=== PATIENT | female | born 1955 | race Caucasian/White ===

== ENCOUNTER 2020-01-15 09:00 | Emergency (ER) | payer MEDICARE, OTHER, SELFPAY ==
[2020-01-15 09:02] VITALS: BMI 40.8
--- NOTE | 2020-01-15 09:05 | ED_ITS ---
HPI - Abdominal Pain General: Chief Complaint: Abdominal Pain Stated Complaint: ABD PAIN Time Seen by Provider: 01/15/20 09:05 Source: patient Mode of arrival: ambulatory Limitations: no limitations History of Present Illness: HPI narrative: Patient comes in today with complaints of diarrhea for 1 month. Patient reports some mild discomfort with diarrhea. Patient appears well. Patient appears in no significant pain. Patient does take losartan with hydrochlorothiazide and slyr-rig-dkgocdf supplements routinely. Associated Symptoms: Reports diarrhea Review of Systems General: Reports: 10 or more systems reviewed and unremarkable except in HPI and below GI: Reports: diarrhea PFSH ED PFSH: Social History Smoking and tobacco status: never smoked Physical Exam Const: COMMON NORMALS: no apparent distress and oriented x3 GENERAL APPEARANCE: cooperative HENMT: COMMON NORMALS: normocephalic, external ears normal, EAC's normal, TM's normal bilaterally and external nose normal HEAD & SCALP: normal to inspection and normocephalic FACE & SINUS: normal facial exam NOSE: external nose normal GENERAL EAR: hearing not grossly impaired EXTERNAL EAR: Yes external ears normal EXTERNAL AUDITORY CANAL: EAC's normal TYMPANIC MEMBRANE: TM's normal bilaterally MOUTH: oral and palatal mucosa normal THROAT: posterior oropharynx normal Eye: COMMON NORMALS: PERRL and EOMs intact bilaterally PUPIL: Yes PERRL Neck/C-Spine: COMMON NORMALS: full ROM and no lymphadenopathy Lymph: LYMPHATIC: no lymphedema noted Chest: COMMONS NORMALS: inspection of chest normal and palpation of chest normal Resp: COMMON NORMALS: normal respiratory effort and clear to auscultation bilaterally AUSCULTATION: clear to auscultation bilaterally Cardio: COMMON NORMALS: regular rate and regular rhythm RATE: regular rate RHYTHM: regular rhythm GI: COMMON NORMALS: normal to inspection, nondistended, normoactive bowel sounds and non-tender : COMMON NORMALS: Yes no CVA tenderness BLADDER/KIDNEY EXAM: Yes no CVA tenderness Back/Pelvis: COMMON NORMALS: no CVA tenderness and thoracic and lumbar spine normal to inspection Extremity: COMMON NORMALS: normal to inspection GENERAL: No edema Neuro: COMMON NORMALS: oriented x3, moves all extremities and no focal motor deficits Psych: COMMON NORMALS: mental status grossly normal and cooperative Skin: COMMON NORMALS: no rashes or lesions noted GENERAL SKIN EXAM: no rashes or lesions noted Course Vital Signs: Vital signs: Vital Signs Temperature 98.6 F 03/07/20 11:05 Pulse Rate 70 01/15/20 11:05 Respiratory Rate 16 01/15/20 11:05 Blood Pressure 178/77 01/15/20 11:05 MDM - Abdominal Pain MDM Narrative: Medical decision making narrative: Patient comes in with 1 month history of diarrhea stools. Patient denies any fever or significant pain except when having cramping prior to diarrhea. Patient appears well. Exam notes abdomen soft nontender to palpation. Bowel sounds are slightly hyperactive. Vital signs were normal. Differential diagnosis includes gastroenteritis, cholecystitis, cholelithiasis, diverticulosis, diverticulitis, hyperkalemia. Laboratory values noted that potassium 2.8. Remainder of the labs were normal or insignificant. CT scan of the abdomen and pelvis noted no abnormalities. Suspect patient has had a short bout of gastroenteritis that ended up with electrolyte imbalance that has persisted with diarrhea. Patient was encouraged to continue with electrolyte solution until diarrhea stopped. We will continue patient on some oral potassium for her hyperkalemia. Reviewed reasons for further evaluation and treatment. And recommendations for follow-up with primary care for recheck on labs. Patient reports understanding agreed to plan. Lab Data: Labs: Lab Results 01/15/20 01/15/20 01/15/20 Range/Units 09:14 09:14 09:28 WBC 9.5 (4.0-10.0) 10^3/ uL RBC 4.58 (4.1-5.3) 10^6/u L Hgb 13.5 (11.5-15.3) g/dL Hct 40.8 (37.0-47.0) % MCV 89.1 (81-99) fL MCH 29.5 (28.0-34.0) pg MCHC 33.1 (30.0-36.0) g/dL RDW 13.5 (12.1-15.1) % Plt Count 351 (130-400) 10^3/c mm MPV 9.6 (7.4-10.4) fL Neut % (Auto) 57.8 % Lymph % (Auto) 29.7 % [place] % (Auto) 7.1 % Eos % (Auto) 4.3 % Baso % (Auto) 0.7 % Neut # (Auto) 5.5 (1.8-7.7) 10^3/u L Lymph # (Auto) 2.8 (0.8-4.8) 10^3/u L [place] # (Auto) 0.7 (0.2-0.9) 10^3/u L Eos # (Auto) 0.4 (0.0-0.8) 10^3/u L Baso # (Auto) 0.1 (0.0-0.1) 10^3/u L Nucleated RBC % (a uto) 0 % Nucleated RBCs # 0.0 /100WBC Sodium 137 (136-145) mmol/L Potassium 2.8 L* (3.5-5.1) mmol/L Chloride 98 (98-107) mmol/L Carbon Dioxide 26 (22-29) mmol/L Anion Gap 15.8 (5-19) BUN 10 (8-23) mg/dL Creatinine 0.8 (0.5-0.9) mg/dL GFR Calculation 71.8 L (90-130) mL/min Glucose 121 H (65-115) mg/dL Calcium 9.6 (8.5-10.5) mg/dL Total Bilirubin 0.4 (0.15-1.2) mg/dL AST 25 (0-32) U/L ALT 26 (0-33) U/L Alkaline Phosphata se 85 (35-105) IU/L Total Protein 7.3 (6.6-8.7) g/dL Albumin 3.9 (3.5-5.2) g/dL Globulin 3.4 (1.3-4.6) g/dL Lipase 20 (13-60) U/L Urine Color Yellow (Yellow) Urine Appearance Clear (CLEAR) Urine pH 7 (5-7) Ur Specific Gravit y 1.005 (1.005-1.030) Urine Protein Neg (Negative) Urine Glucose (UA) Norm (Normal) Urine Ketones Negative (Negative) Urine Blood Neg (Negative) Urine Nitrate Negative (Negative) Urine Bilirubin Neg (NEGATIVE) Urine Urobilinogen Norm (Negative) mg/dL Ur Leukocyte Emma ase Negative (Negative) Urine RBC Cancelled Urine WBC Cancelled Ur Squamous Epith Cells Cancelled Ur Transition Epit h Cell Cancelled Ur Renal Epithelia l Cell Cancelled Calcium Oxalate Cr ystal Cancelled Uric Acid Crystals Cancelled Triple Phos [place] ls Cancelled Other Crystals Cancelled Amorphous Sediment Cancelled Urine Bacteria Cancelled Hyaline Casts Cancelled Fine Granular Cast s Cancelled Coarse Granular Ca sts Cancelled RBC Casts Cancelled Other Casts Cancelled Urine Mucus Cancelled Urine Trichomonas Cancelled Urine Yeast Cancelled Urine Sperm Cancelled Ur Oval Fat Bodies Cancelled Discharge Plan Discharge Patient Disposition: Home, Self-Care Clinical Impression: Hypokalemia Diarrhea Qualifiers: Diarrhea type: due to malabsorption Qualified Code(s): K90.9 - Intestinal malabsorption, unspecified Condition: Stable Prescriptions: New dicyclomine 20 mg tablet 20 mg PO TID Qty: 30 RF: 0 potassium chloride 20 mEq tablet extended release 20 meq PO DAILY Qty: 10 RF: 0 No Action losartan-hydrochlorothiazide 100-25 mg Tablet 1 tab PO DAILY RF: 0 Referrals: Colby Zhou MD [Family Provider] - Discharge Diet: Advance as tolerated Discharge Activity: Increase activity as tolerated Patient Instructions: Chronic Diarrhea (ED) Activity Restrictions/Additional Instructions: Drink 8 ounces of electrolyte solution, Pedialyte, three times daily until diarrhea stops Take Potassium Follow-up with primary care in three days for lab recheck Use medication as directed for diarrhea Return to ER for high fever or increasing pain Discharge Date/Time: 01/15/20 11:08 Coding Level of Care Code ED Intelligence Applications for Chg Fwd Exam Comprehensive
[2020-01-15 09:06] VITALS: BP 168/82; PULSE 87; RESP 16; TEMP 36.9
[2020-01-15 09:25] LABS: Basophils # 0.1 10^3/uL (0.0-0.1); Basophils % 0.7 %; Eosinophils # 0.4 10^3/uL (0.0-0.8); Eosinophils % 4.3 %; Hematocrit 40.8 % (37.0-47.0); Hemoglobin 13.5 g/dL (11.5-15.3); Lymphocytes # 2.8 10^3/uL (0.8-4.8); Lymphocytes % 29.7 %; Mean Corpuscular HGB Conc 33.1 g/dL (30.0-36.0); Mean Corpuscular Hemoglobin 29.5 pg (28.0-34.0); Mean Corpuscular Volume 89.1 fL (81-99); Mean Platelet Volume 9.6 fL (7.4-10.4); Monocytes # 0.7 10^3/uL (0.2-0.9); Monocytes % 7.1 %; Neutrophils # 5.5 10^3/uL (1.8-7.7); Neutrophils % 57.8 %; Nucleated Red Blood Cells % 0 %; Platelet Count 351 10^3/cmm (130-400); Red Blood Count 4.58 10^6/uL (4.1-5.3); Red Cell Distribution Width 13.5 % (12.1-15.1); White Blood Count 9.5 10^3/uL (4.0-10.0)
[2020-01-15 09:38] LABS: Alanine Aminotransferase 26 U/L (0-33); Albumin Level 3.9 g/dL (3.5-5.2); Alkaline Phosphatase 85 IU/L (35-105); Anion Gap 15.8 (5-19); Aspartate Amino Transferase 25 U/L (0-32); Blood Urea Nitrogen 10 mg/dL (8-23); Calcium 9.6 mg/dL (8.5-10.5); Carbon Dioxide 26 mmol/L (22-29); Chloride 98 mmol/L (98-107); Globulin 3.4 g/dL (1.3-4.6); Glomerular Filtration Rate 71.8 mL/min (90-130); Glucose 121 mg/dL (65-115); Lipase 20 U/L (13-60); Sodium 137 mmol/L (136-145); Total Bilirubin 0.4 mg/dL (0.15-1.2); Total Protein 7.3 g/dL (6.6-8.7)
[2020-01-15 09:40] LABS: Potassium 2.8 mmol/L (3.5-5.1)
--- NOTE | 2020-01-15 09:42 | CTR_ITS ---
PROCEDURE INFORMATION: Exam: CT Abdomen And Pelvis With Contrast Exam date and time: 01/15/2020 9:53 AM Age: 64 years old Clinical indication: Other: Diarrhea; Additional info: Abd pain, diarrhea TECHNIQUE: Imaging protocol: Computed tomography of the abdomen and pelvis with intravenous contrast. Total DLP: 1441.79 mGy-cm Radiation optimization: All CT scans at this facility use at least one of these dose optimization techniques: automated exposure control; mA and/or kV adjustment per patient size (includes targeted exams where dose is matched to clinical indication); or iterative reconstruction. Contrast material: OMNI 300; Contrast volume: 95 ml; Contrast route: RT AC; COMPARISON: No relevant prior studies available. FINDINGS: Liver: Normal. No mass. Gallbladder and bile ducts: Normal. No calcified stones. No ductal dilation. Pancreas: Normal. No ductal dilation. Spleen: Normal. No splenomegaly. Adrenals: Normal. No mass. Kidneys and ureters: Left renal cyst measuring < 1.0 cm . Stomach and bowel: Unremarkable. No obstruction. No mucosal thickening. Appendix: No evidence of appendicitis. Intraperitoneal space: Unremarkable. No free air. No significant fluid collection. Vasculature: Calcification of the abdominal aorta and/or iliac arteries consistent with atherosclerotic vessel disease. Lymph nodes: Unremarkable. No enlarged lymph nodes. Bladder: Unremarkable as visualized. Reproductive: Unremarkable as visualized. Bones/joints: Moderate to severe multilevel spine degenerative changes including degenerative disc disease, spondylosis and facet degenerative changes. Mild dextroscoliosis. Soft tissues: Unremarkable. CT/CT abdomen pelvis w con* [id number] IMPRESSION: No acute findings. Radiation Dose CTDIVOL = (mGy): DLP = 1441.79 (mGy-cm)
[2020-01-15 09:49] LABS: Bilirubin Urine Neg (NEGATIVE); Blood Urine Neg (Negative); Glucose Urine UA Norm (Normal); Ketones Urine Negative (Negative); Leukocyte Esterase Urine Negative (Negative); Nitrate Urine Negative (Negative); Protein Urine Neg (Negative); Specific Gravity, Urine 1.005 (1.005-1.030); Urine Appearance Clear (CLEAR); Urine Color Yellow (Yellow); Urobilinogen Urine Norm (Negative); pH Urine 7 (5-7)
[2020-01-15 09:51] LABS: Add Urine Microscopic? NO
[2020-01-15] MEDS: sodium chloride 0.9% 1,000 ML 999 ML IV (10:02)
[2020-01-15] MEDS: iohexol 300 mg/mL 100 mL Btl IV (10:11)
[2020-01-15 11:05] VITALS: BP 178/77; PULSE 70; RESP 16; TEMP 37
== END 2020-01-15 11:08 | disposition home or self-care (01) ==
PROVIDERS: Emergency Provider Nurse Practitioner Family; Family Provider Family Medicine
DX: E87.6 Hypokalemia (principal); K90.9 Intestinal malabsorption, unspecified; Z79.899 Other long term (current) drug therapy
CPT/HCPCS: 12345; 36415; 74177; 80053; 81003; 83690; 85025; 96360; 99283; 99284; J7030; Q9967

== ENCOUNTER 2020-10-24 13:27 | Outpatient (CLI) | payer MEDICARE, OTHER, SELFPAY ==
--- NOTE | 2020-10-24 13:32 | MM_ITS ---
WS: [id number] BILATERAL DIGITAL SCREENING MAMMOGRAPHY WITH CAD CLINICAL INFORMATION: SCREENING HISTORY: Screening mammogram. No current complaints. COMPARISON: TECHNIQUE: Bilateral CC and MLO views. FINDINGS: Scattered fibroglandular densities bilaterally. No suspicious focal mass, asymmetry, calcifications, or architectural distortion. No evidence of malignancy. Incidental intramammary lymph nodes. A few pu nctate calcifications. MM/[place] [id number] IMPRESSION: BI-RADS: 2-Benign FOLLOW UP: 1 Year Follow-up Recommend return to annual screening mammography.
== END 2020-10-24 13:28 | disposition home or self-care (01) ==
LOC: RADSHAW 13:30
PROVIDERS: PCP Family Medicine; Visit Provider Family Medicine
DX: Z12.31 Encounter for screening mammogram for malignant neoplasm of breast (principal)
CPT/HCPCS: 77067

== ENCOUNTER 2021-11-27 08:05 | Outpatient (CLI) | payer MEDICARE, OTHER, SELFPAY ==
[2021-11-27 08:18] VITALS: BP 176/77; PULSE 84; RESP 20; TEMP 36.8; O2SAT 95
[2021-11-27 08:51] VITALS: BMI 40.1
[2021-11-27 09:15] VITALS: BP 153/79; PULSE 80; RESP 18; TEMP 36.4; O2SAT 97
[2021-11-27 10:15] VITALS: BP 158/68; PULSE 67; RESP 17; TEMP 36.4; O2SAT 99
== END 2021-11-27 10:15 | disposition home or self-care (01) ==
LOC: OPS 08:10
PROVIDERS: PCP Family Medicine; Visit Provider Nurse Practitioner Family
DX: U07.1 COVID-19 (principal)
CPT/HCPCS: 96365

== ENCOUNTER 2022-03-14 09:26 | Outpatient (CLI) | payer MEDICARE, OTHER, SELFPAY ==
--- NOTE | 2022-03-14 09:31 | MM_ITS ---
WS: [id number] BILATERAL SCREENING 3D TOMOSYNTHESIS DIGITAL MAMMOGRAM WITH CAD HISTORY: SCREENING COMPARISON: 10/24/2020 and 09/30/2019 Bilateral CC and MLO views submitted. Computer aided detection analyzed. Breast composition: There are scattered areas of fibroglandular density. No suspicious masses, microc alcifications or architectural distortion. Benign intramammary lymph node upper outer quadrant RIGHT breast. MM/[place] [id number] IMPRESSION: BI-RADS: 2-Benign FOLLOW UP: 1 Year Follow-up
== END 2022-03-14 09:27 | disposition home or self-care (01) ==
LOC: RADSHAW 09:28
PROVIDERS: PCP Family Medicine; Visit Provider Family Medicine
DX: Z12.31 Encounter for screening mammogram for malignant neoplasm of breast (principal)
CPT/HCPCS: 77063; 77067

== ENCOUNTER → 2022-06-01 13:32 | Outpatient (BNVA) | payer MEDICARE, OTHER, SELFPAY | PROVIDERS: PCP Family Medicine; Visit Provider Registered Nurse Neonatal Intensive Care | DX: N39.0 Urinary tract infection, site not specified (principal); Z71.1 Person with feared health complaint in whom no diagnosis is made | CPT/HCPCS: 81000 ==

== ENCOUNTER → 2022-11-20 17:16 | Outpatient (BNVA) | payer MEDICARE, OTHER, SELFPAY | PROVIDERS: PCP Family Medicine; Visit Provider Emergency Medicine | DX: N39.0 Urinary tract infection, site not specified (principal) | CPT/HCPCS: 81000; 87086 ==

== ENCOUNTER 2023-03-26 10:45 | Outpatient (CLI) | payer MEDICARE, OTHER, SELFPAY ==
--- NOTE | 2023-03-26 10:51 | MM_ITS ---
WS: [id number] BILATERAL SCREENING DIGITAL TOMOSYNTHESIS MAMMOGRAM WITH CAD HISTORY: SCREENING COMPARISON: 03/14/2022, 10/24/2020 Bilateral CC and MLO views with tomosynthesis and synthetic mammography submitted. Computer aided det ection analyzed. Breast composition: There are scattered areas of fibroglandular density. No suspicious masses, microc alcifications or architectural distortion. Benign calcifications in each breast. Breast arterial calc ifications. MM/[place] [id number] IMPRESSION: BI-RADS: 2-Benign FOLLOW UP: 1 Year Follow-up
== END 2023-03-26 10:46 | disposition home or self-care (01) ==
PROVIDERS: PCP Family Medicine; Visit Provider Family Medicine
DX: Z12.31 Encounter for screening mammogram for malignant neoplasm of breast (principal)
CPT/HCPCS: 77063; 77067

== ENCOUNTER 2023-09-27 19:37 | Inpatient (IN) | payer MEDICARE, OTHER, SELFPAY ==
[2023-09-27] VITALS (12 sets, daily range): BP systolic 105–138; BP diastolic 62–79; PULSE 70–144; RESP 16–24; TEMP 36.7; O2SAT 96–98
--- NOTE | 2023-09-27 19:59 | ECG_ITS ---
[facility] Test Date: 2023-09-27 Pat Name: Binta Olivares Department: Room: Gender: Female Psychiatric Social Worker Supervisor: : 1955 Requested By: Dean Nevarez Order Number: [id number] Gaby MD: Kristal Hong M.D. Measurements Intervals [place] Rate: 167 P: 0 MD: 0 QRS: 74 QRSD: 93 T: 88 QT: 280 QTc: 467 Interpretive Statements ATRIAL FIBRILLATION WITH RAPID VENTRICULAR RESPONSE MODERATE ST DEPRESSION [0.05+ mV ST DEPRESSION] CRITICAL TEST RESULT No previous ECG available for comparison Electronically Signed On 09-28-2023 22:01:33 MACHINE MAINTENANCE SERVICER by Kristal Hong M.D. [email or web address] [email or web address] butler hospitalNevada Copper/store/NU/[id number] f
--- NOTE | 2023-09-27 20:13 | ED_ITS ---
HPI - Arrhythmia/Palpitations General: Chief Complaint: Arrhythmia/Palpitations Stated Complaint: heart palpations Time Seen by Provider: 09/27/23 20:06 History of Present Illness: 68-year-old female presents emergency department complaints of feeling like her heart is racing skipping beats. She states that started this morning and has continued intermittently throughout the day. She states she has intermittently felt dizzy and lightheaded. She does have associated nausea at this time. She denies active chest pain, shortness of breath or vomiting. She states she does not have a history of irregular heartbeat. Associated symptoms: Reports nausea Review of Systems General: Reports: 10 or more systems reviewed and unremarkable except in HPI and below Card: Reports: palpitations and irregular heart rhythm GI: Reports: nausea PFSH ED PFSH: Social History Smoking and tobacco/nicotine status: never used tobacco/nicotine Physical Exam Narrative: EXAM NARRATIVE: Constitutional: the patient appears well nourished and with normal development. Vital signs reviewed as documented. HENMT: Normocephalic, atraumatic. External ears with normal appearance without drainage. Nose without drainage, normal appearance. Mucus membranes moist. Neck is supple, No jugular venous distension, trachea is midline, no appreciable carotid bruits. No lymphadenopathy. No meningeal signs. Flexion, extension and lateral rotation is without pain. Eyes: Pupils are equal, round, reactive to light and accommodation. No scleral icterus. Extra-ocular movement are intact. Thorax is symmetrical and with equal rise and fall with respirations. Resp: Lungs are clear to auscultation. No wheezes, rales, crackles or ronchi at pesent. Cardio: Atrial fibrillation with rapid ventricular response with a heart rate in the 167 bpm.. Positive S1, S2. No appreciable murmurs, rubs or gallops. GI: Abdominal exam reveals normal bowel sounds to all quadrants. No organomegaly. No obvious palpable masses noted. No hepatomegaly appreciated. Soft, nontender to palpation. Extremity: Extremities are non-edematous and both femoral and pedal pulses are 2+ and equal bilaterally. Moves all extremities well, sensation in all extremities. Neuro: Alert and oriented x4, person, place, time and situation. Cranial nerves II through XII are grossly intact, there is no focal neurological deficits that I can appreciate at present. Motor strength in the upper and lower extremities are equal and bilateral 5/5. Psych: Cooperative, calm, normal thought process, appropriate judgment. Skin: No lesions, rashes. No gross abnormalities noted. Back: Symmetrical, no obvious deformity, No CVA tenderness Course Vital Signs: Vital signs: Vital Signs Temperature 98.0 F 09/27/23 19:55 Pulse Rate 121 H 09/27/23 21:11 Respiratory Rate 16 09/27/23 21:11 Blood Pressure 138/72 09/27/23 21:11 Pulse Oximetry 98 09/27/23 21:11 Oxygen Delivery Me thod Room Air 09/27/23 19:55 MDM - Arrhythmia/Palpitations Medical Decision Making Physical exam completed and documented, I will provide IV fluid and CBC, CMP cardiac enzymes twelve-lead EKG and a chest x-ray. Given the new onset atrial fibrillation that started less than 24 hours we will provide her Cardizem IV push and Cardizem drip to control her atrial fibrillation and ultimately will admit her to the hospital service and consult cardiology. Differential Diagnosis Likely palpitations, artial fibrillation and artial flutter Medical Records I reviewed the patient's medical records. Lab Data I reviewed the patient's lab results. 09/27/23 20:16 09/27/23 20:16 Radiology Impressions Chest X-Ray 09/27/23 20:14 IMPRESSION: No acute findings. Laboratory Results WBC 7.63 10^3/uL (3.29-11.43) 09/27/23 20:16 RBC 4.68 10^6/uL (3.85-5.65) 09/27/23 20:16 Hgb 13.80 g/dL (11.27-16.99) 09/27/23 20:16 Hct 41.6 % (36-47) 09/27/23 20:16 MCV 88.9 fl (85-98) 09/27/23 20:16 MCH 29.5 pg (27-33) 09/27/23 20:16 MCHC 33.2 g/dL (30-55) 09/27/23 20:16 RDW 13.5 % (12.1-15.1) 09/27/23 20:16 Plt Count 286 10^3/cmm (157-399) 09/27/23 20:16 MPV 10.4 fL (7.4-10.4) 09/27/23 20:16 Neut % (Auto) 43.2 % 09/27/23 20:16 Lymph % (Auto) 39.2 % 09/27/23 20:16 [place] % (Auto) 5.1 % 09/27/23 20:16 Eos % (Auto) 11.3 % 09/27/23 20:16 Baso % (Auto) 0.8 % 09/27/23 20:16 Neut # (Auto) 3.30 10^3/uL (1.8-7.7) 09/27/23 20:16 Lymph # (Auto) 3.0 10^3/uL (0.8-4.8) 09/27/23 20:16 [place] # (Auto) 0.4 10^3/uL (0.2-0.9) 09/27/23 20:16 Eos # (Auto) 0.9 10^3/uL (0.0-0.8) H 09/27/23 20:16 Baso # (Auto) 0.1 10^3/uL (0.0-0.1) 09/27/23 20:16 Nucleated RBC % (auto) 0 % 09/27/23 20:16 Nucleated RBCs # 0.0 /100WBC 09/27/23 20:16 PT 14.30 SECONDS (12.1-14.9) 09/27/23 20:16 INR 1.08 (0.8-1.2) 09/27/23 20:16 APTT 32.3 SECONDS (23.9-36.7) 09/27/23 20:16 Sodium 137 mmol/L (136-145) 09/27/23 20:16 Potassium 3.6 mmol/L (3.5-5.1) 09/27/23 20:16 Chloride 101 mmol/L (98-107) 09/27/23 20:16 Carbon Dioxide 22 mmol/L (22-29) 09/27/23 20:16 Anion Gap 17.6 (5-19) 09/27/23 20:16 BUN 24 mg/dL (8-23) H 09/27/23 20:16 Creatinine 0.6 mg/dL (0.5-0.9) 09/27/23 20:16 GFR Calculation 98.8 mL/min (90-130) 09/27/23 20:16 Glucose 124 mg/dL (65-115) H 09/27/23 20:16 Calculated Osmolality 289 mOsm/kg (285-295) 09/27/23 20:16 Calcium 9.4 mg/dL (8.5-10.5) 09/27/23 20:16 Total Bilirubin 0.6 mg/dL (0.15-1.2) 09/27/23 20:16 AST 727 U/L (0-32) H 09/27/23 20:16 ALT 1393 U/L (0-33) H 09/27/23 20:16 Alkaline Phosphatase 263 U/L (35-105) H 09/27/23 20:16 Troponin T Baseline < 6 ng/L (0-10) 09/27/23 20:16 NT-Pro-B Natriuret Pep 148 pg/mL (0-125) H 09/27/23 20:16 Total Protein 6.6 g/dL (6.6-8.7) 09/27/23 20:16 Albumin 4.1 g/dL (3.5-5.2) 09/27/23 20:16 Globulin 2.5 g/dL (1.3-4.6) 09/27/23 20:16 All radiology interpretation(s) finalized by discharge EKG Data Initial twelve-lead EKG obtained at 1951 and reviewed at 1951 demonstrates atrial fibrillation with rapid ventricular response with a ventricular rate of 167, QRS duration of 93, QT 280 QTc [address] elevation or significant depression to demonstrate ischemia or infarction.: Other EKG comments: Chest X-Ray 09/27/23 20:14 IMPRESSION: No acute findings. Repeat EKG obtained at 2205 and reviewed at 2209 demonstrates sinus rhythm with PACs, ventricular rate of 81 AK interval 145 QRS duration 93 QT 344 QTc 382. There is no acute ST elevation or depression to demonstrate ischemia or infarction at present.: Other EKG comments: Chest X-Ray 09/27/23 20:14 IMPRESSION: No acute findings. Critical Care Time Critical Care Time: Critical Care Time: Yes Total Critical Care Time: 75 Attestation: This case had a high probability of a clinically significant, sudden, or life threatening deterioration of this patient's condition which required my full and direct attention, intervention and personal management. Discharge Plan Discharge Patient Disposition: Admitted As Inpatient Clinical Impression: Atrial fibrillation with rapid ventricular response Condition: Stable Coding Level of Care Code ED Ground Services Instructor for Jerman Golden
--- NOTE | 2023-09-27 20:14 | XRR_ITS ---
PROCEDURE INFORMATION: Exam: XR Chest Exam date and time: 09/27/2023 8:27 PM Age: 68 years old Clinical indication: Pain; Chest pressure; Additional info: Afib; Chest pain TECHNIQUE: Imaging protocol: Radiologic exam of the chest. Views: 1 view. COMPARISON: CT abdomen pelvis w con* [id number] 01/15/2020 10:17 AM FINDINGS: Lungs: Unremarkable. No consolidation. Pleural spaces: Unremarkable. No pleural effusion. No pneumothorax. Heart/Mediastinum: Unremarkable. No cardiomegaly. Bones/joints: Unremarkable. XR/XR chest 1V portable [id number] IMPRESSION: No acute findings.
[2023-09-27] MEDS: dilTIAZem 5 mg/mL SDV 5 mL 20 MG IVP (20:21)
[2023-09-27 20:26] LABS: Basophils # 0.1 10^3/uL (0.0-0.1); Basophils % 0.8 %; Eosinophils # 0.9 10^3/uL (0.0-0.8); Eosinophils % 11.3 %; Hematocrit 41.6 % (36-47); Lymphocytes % 39.2 %; Mean Corpuscular HGB Conc 33.2 g/dL (30-55); Mean Corpuscular Hemoglobin 29.5 pg (27-33); Mean Corpuscular Volume 88.9 fl (85-98); Mean Platelet Volume 10.4 fL (7.4-10.4); Monocytes # 0.4 10^3/uL (0.2-0.9); Monocytes % 5.1 %; Neutrophils % 43.2 %; Nucleated Red Blood Cells % 0 %; Platelet Count 286 10^3/cmm (157-399); Red Blood Count 4.68 10^6/uL (3.85-5.65); Red Cell Distribution Width 13.5 % (12.1-15.1); White Blood Count 7.63 10^3/uL (3.29-11.43)
[2023-09-27] MEDS: sodium chloride 0.9% 1,000 ML 999 ML IV ×2 (20:29→22:05)
[2023-09-27 20:42] LABS: INR 1.08 (0.8-1.2)
[2023-09-27 20:43] LABS: Partial Thromboplastin Time 32.3 SECONDS (23.9-36.7)
[2023-09-27 20:49] LABS: Troponin(5th) Baseline < 6 ng/L (0-10)
[2023-09-27 20:58] LABS: Albumin Level 4.1 g/dL (3.5-5.2); Alkaline Phosphatase 263 U/L (35-105); Anion Gap 17.6 (5-19); Blood Urea Nitrogen 24 mg/dL (8-23); Calcium 9.4 mg/dL (8.5-10.5); Carbon Dioxide 22 mmol/L (22-29); Chloride 101 mmol/L (98-107); Globulin 2.5 g/dL (1.3-4.6); Glomerular Filtration Rate 98.8 mL/min (90-130); Glucose 124 mg/dL (65-115); NT Pro B Type Natriuretic Pept 148 pg/mL (0-125); Osmolality Calculated 289 mOsm/kg (285-295); Potassium 3.6 mmol/L (3.5-5.1); Sodium 137 mmol/L (136-145); Total Bilirubin 0.6 mg/dL (0.15-1.2); Total Protein 6.6 g/dL (6.6-8.7)
[2023-09-27 21:09] LABS: Alanine Aminotransferase 1393 U/L (0-33)
[2023-09-27 21:11] LABS: Aspartate Amino Transferase 727 U/L (0-32)
--- NOTE | 2023-09-27 22:06 | ECG_ITS ---
[facility] Test Date: 2023-09-27 Pat Name: Binta Olivares Department: Room: Gender: Female Astrochemist: : 1955 Requested By: Mustapha Mena Order Number: [id number] Gaby MD: Kristal Hong M.D. Measurements Intervals [place] Rate: 81 P: 66 MS: 145 QRS: 67 QRSD: 93 T: 76 QT: 344 QTc: 401 Interpretive Statements SINUS RHYTHM WITH FREQUENT SUPRAVENTRICULAR PREMATURE COMPLEXES ABNORMAL RHYTHM ECG Compared to ECG 09/27/2023 19:52:49 Atrial fibrillation no longer present ST (T wave) deviation no longer present Electronically Signed On 09-28-2023 22:17:58 DISTRICT SUPERVISOR by Kristal Hong M.D. [id number]
--- NOTE | 2023-09-27 22:28 | PC.NURSE ---
Dr. Mena gave verbal orders for this RN to titrate Cardizem drip to 8ml/hr. pts pressure is 109/79 @ the time of titrate.
[2023-09-27] MEDS: metoprolol tartrate 1 mg/1 mL SDV 5 mL 5 MG IVP (22:41)
--- NOTE | 2023-09-27 22:48 | PC.NURSE ---
dr hooks gave verbal orders to titrate cardizem drip to 10. complete at 2247. bp 126/79
--- NOTE | 2023-09-27 22:49 | PM.HP ---
Providers/Chief Complaint Primary Care Provider: Colby Zhou MD Chief Complaint: heart palpations History of Present Illness Binta Olivares is a 68 year old female with no significant past medical history other than hypertension, gastric bypass surgery, obstructive sleep apnea on CPAP presented to the ER today with ongoing palpitations. As per patient she was feeling lightheaded 3-4 times today when she decided to check her heart rate which was running more than 150s so she presented to the ER. She has had episodes of palpitations on and off many times in the past. In the ER she was found to have atrial fibrillation with rapid ventricular response for which she was given 20 mg of IV Cardizem push and started on IV Cardizem. I have requested patient to be given 5 mg of IV metoprolol push along with continuation of Cardizem drip. Patient denies any shortness of breath, nausea, vomiting, chest pain, dizziness, history of atrial fibrillation, history of stroke, history of bleeding diathesis. Review of Systems General: Reports: 10 or more systems reviewed and unremarkable except in HPI and below Const: Denies: fever(s), chills, body aches, change in appetite, change in weight, malaise, night sweats, diaphoresis, change in sleep pattern, daytime sleepiness or snoring Eyes: Denies: change in vision, blurry vision, photophobia, eye discomfort or eye discharge ENMT: Denies: throat pain, enlarged tonsils, hoarseness, mouth pain, oral sores, dry mouth, tinnitus, nasal congestion or post nasal drip Card: Denies: chest pain, palpitations, irregular heart rhythm, edema, swelling of feet/ankles, lightheadedness, syncope, pre-syncope, dyspnea on exertion, orthopnea, leg pain with exertion or acrocyanosis Resp: Denies: dyspnea, productive cough, non-productive cough, wheezing, stridor, pain on inspiration, change in phlegm color, hemoptysis or chest congestion GI: Denies: abdominal pain, nausea, vomiting, hematemesis, coffee ground emesis, dysphagia, heartburn, diarrhea, constipation, bloating, GI cramping, change in bowel habits, pain on defecation, hematochezia or melena : Denies: flank pain, dysuria, urinary frequency, urinary urgency, urinary hesitancy, nocturia or hematuria Musc: Denies: neck pain, back pain, extremity pain, joint pain, joint swelling, joint redness, joint stiffness or limited range of motion Neuro: Denies: headache(s), numbness in extremities, weakness in extremities, sensory changes, lack of coordination, difficulty walking, frequent falls, dizziness, vertigo, confusion, Slurred speech present, difficulty communicating thoughts or seizure-like activity Psych: Denies: anxiety, depression, mood swings, panic attacks, hopelessness or irritability Endo: Denies: polyuria, polydipsia, tired all the time, cold intolerance, excessive sweating, flushing or heat intolerance Jurgen/Lymph: Denies: easy bruising or easy bleeding All/Imm: Denies: tongue swelling, facial swelling or acute wheezing Medications/Allergies Home Medications Medication Instructions Recorded Confirmed Last Taken Type potassium chloride 20 mEq 20 meq PO DAILY #10 tabs 01/15/20 11/20/22 Unknown Rx tablet,extended release amlodipine 10 mg tablet 10 mg PO DAILY 12/22/20 11/20/22 Unknown History hydrochlorothiazide 25 mg tablet 25 mg PO DAILY 12/22/20 11/20/22 Unknown History sulfamethoxazole 800 1 tab PO BID 7 days #14 tabs 11/20/22 11/20/22 Unknown Rx mg-trimethoprim 160 mg tablet (Bactrim DS) Allergies Allergy/AdvReac Type Severity Reaction Status Date / Time No Known Allergies Allergy Verified 09/27/23 19:59 PFSH Acute PFSH: Medical History (Updated 09/27/23 @ 23:43 by Roldan Staley MD) Hypertension Obstructive sleep apnea Surgical History (Updated 09/27/23 @ 23:43 by Roldan Staley MD) H/O gastric bypass History of ear surgery History of knee surgery Social History Smoking and tobacco/nicotine status: never used tobacco/nicotine Vitals/I&O/Wt Last Vital Signs Temp 98.0 F 09/27/23 19:55 Pulse 121 H 09/27/23 21:11 Resp 16 09/27/23 21:11 BP 138/72 09/27/23 21:11 Pulse Ox 98 09/27/23 21:11 O2 Del Method Room Air 09/27/23 19:55 11/09/27/23 09/27/23 06:59 14:59 22:59 Intake Total 1000 / 1000 Balance 1000 / 1000 Weight last 48 hrs Weight 63.049 kg Physical Exam Narrative: General: No acute distress, AO x3, pleasant, well-nourished HEENT: PERRLA, pupils bilaterally equal and reactive Chest: Normal vesicular breath sounds, no added sounds, equal good air entry bilaterally CVS: S1-S2 irregularly irregular, no murmurs, tachycardia, no gallops, no rubs Abdomen: Soft, nontender, no organomegaly, bowel sounds present Neuro: No focal deficits, no facial deformity, AO x3, power 5/5 in all limbs Data 09/27/23 20:16 09/27/23 20:16 A&P Assessment and plan (1) Atrial fibrillation with rapid ventricular response: New diagnosis. Check echocardiogram, TSH. Started on Cardizem drip in the ER. Titrate with heart rate less than 100. For now start on metoprolol 50 mg twice daily. We will try to titrate down the Cardizem drip keeping the heart rate less than 100 otherwise we will transition to oral Cardizem. Discussed in detail about anticoagulation for stroke prevention. Discussed about merits versus demerits. Patient is agreeable. Will start on Eliquis 5 mg twice daily. (2) Hypertension: Goal blood pressure less than 140/90 mmHg with mean over 65. Takes amlodipine 10 mg, hydrochlorothiazide 25 mg at home. For now we will hold off. (3) Obstructive sleep apnea: Continue home CPAP Plan Full code Cardiac diet Famotidine for PUD prophylaxis. Eliquis will suffice as DVT prophylaxis. Attestations Medical Necessity Statement*: Admission for more than 2 midnights for management of atrial fibrillation with rapid ventricular response requiring IV drip Diagnoses Atrial fibrillation with rapid ventricular response I48.91 Hypertension I10 Obstructive sleep apnea G47.33
[2023-09-27 23:08] LABS: D Dimer 2.29 ug/mLFEU (0-0.59)
[2023-09-27 23:34] LABS: Amphetamines Screen Urine Negative (Negative); Barbiturates Screen Urine Negative (Negative); Benzodiazepines Screen Urine Negative (Negative); Cocaine Screen Urine Negative (Negative); Opiate Screen Urine Negative (Negative); PCP Screen Urine Negative (Negative); THC Screen Urine Negative (Negative)
[2023-09-27 23:52] LABS: Troponin 5 2HR 7.97 ng/L (0-10); Troponin 5 2HR Delta 1.97001 ABS# (0-10)
[2023-09-28] VITALS (72 sets, daily range): BP systolic 98–158; BP diastolic 44–75; PULSE 51–107; RESP 10–35; TEMP 36.6–36.8; O2SAT 96–99; BMI 25.8; BMI 25.9
--- NOTE | 2023-09-28 00:03 | PC.NURSE ---
Dr. Mena gave a verbal order to increase Cardizem drip by 2ml, every 15 minutes until HR is under 110. with a max of 15ml/hr
--- NOTE | 2023-09-28 01:38 | USR_ITS ---
PROCEDURE INFORMATION: Exam: US Abdomen, Limited; Right Upper Quadrant Exam date and time: 09/28/2023 7:48 AM Age: 68 years old Clinical indication: Condition or disease; Other: Transaminitis; Prior surgery; Surgery date: 3-7 days post-operative; Surgery type: Patient states she had her gb removed a week ago. TECHNIQUE: Imaging protocol: Real time ultrasound of the abdomen with image documentation. Limited exam focused on the right upper quadrant. COMPARISON: CT abdomen pelvis w con* [id number] 01/15/2020 10:17 AM FINDINGS: Liver: Normal. No masses. Gallbladder: Status post cholecystectomy. Biliary ducts: Normal. No stones. No dilation. Pancreas: Visualized pancreas is unremarkable. Right kidney: Normal. No mass. No hydronephrosis. US/US liver [id number] IMPRESSION: Status post cholecystectomy. No acute process
--- NOTE | 2023-09-28 01:38 | PC.NURSE ---
Dr Topete notified of patient's HR in the 60s. Verbal orders given to drop cardizem drip from 12 to 5. Drip titrated accordingly.
--- NOTE | 2023-09-28 01:43 | PC.NURSE ---
Report called to [facility] room 112-1. All questions and concerns addressed at time of report.
--- NOTE | 2023-09-28 02:14 | ECG_ITS ---
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 Measurements Intervals [place] Rate: 56 P: 28 OK: 161 QRS: 1 QRSD: 91 T: 15 QT: 420 QTc: 407 Interpretive Statements SINUS BRADYCARDIA Compared to ECG 09/27/2023 22:06:21 Sinus rhythm no longer present Electronically Signed On 09-28-2023 22:19:03 TALKBACK HOST by Kristal Hong M.D. [id number]
--- NOTE | 2023-09-28 02:57 | PC.NURSE ---
nurse received pt from er in sinus rhythm, nurse notified dr and orders to stop drip received.
[2023-09-28 03:57] LABS: Basophils # 0.1 10^3/uL (0.0-0.1); Basophils % 1.1 %; Eosinophils # 0.9 10^3/uL (0.0-0.8); Eosinophils % 13.5 %; Hematocrit 42.3 % (36-47); Lymphocytes # 2.9 10^3/uL (0.8-4.8); Lymphocytes % 45.1 %; Mean Corpuscular HGB Conc 32.6 g/dL (30-55); Mean Corpuscular Hemoglobin 29.8 pg (27-33); Mean Corpuscular Volume 91.4 fl (85-98); Mean Platelet Volume 10.6 fL (7.4-10.4); Monocytes # 0.4 10^3/uL (0.2-0.9); Monocytes % 5.5 %; Neutrophils % 34.6 %; Nucleated Red Blood Cells % 0 %; Platelet Count 268 10^3/cmm (157-399); Red Blood Count 4.63 10^6/uL (3.85-5.65); Red Cell Distribution Width 13.7 % (12.1-15.1); White Blood Count 6.36 10^3/uL (3.29-11.43)
[2023-09-28 04:19] LABS: Gamma Glutamyl Transferase 153 U/L (5-36)
[2023-09-28 04:20] LABS: Chol HDL Ratio 2.43 mg/dL (0.0-4.40); Cholesterol 141 mg/dL (0-200); Estmated Average Glucose 105; HDL Cholesterol 58 mg/dL (60-100); Hemoglobin A1C 5.3 % (4.0-6.0); LDL Cholesterol Calculated 69 mg/dL (50-129); LDL HDL Ratio 1.19 RATIO (0.00-3.22); Magnesium 1.7 mg/dL (1.7-2.3); Phosphorus 3.4 mg/dL (2.5-4.5); Triglycerides 70 mg/dL (0-150)
[2023-09-28 04:21] LABS: Albumin Level 3.5 g/dL (3.5-5.2); Alkaline Phosphatase 220 U/L (35-105); Anion Gap 14.9 (5-19); Aspartate Amino Transferase 454 U/L (0-32); Blood Urea Nitrogen 17 mg/dL (8-23); Carbon Dioxide 23 mmol/L (22-29); Chloride 106 mmol/L (98-107); Globulin 2.8 g/dL (1.3-4.6); Glomerular Filtration Rate 157.8 mL/min (90-130); Glucose 102 mg/dL (65-115); Osmolality Calculated 294 mOsm/kg (285-295); Sodium 141 mmol/L (136-145); Total Bilirubin 0.6 mg/dL (0.15-1.2); Total Protein 6.3 g/dL (6.6-8.7)
[2023-09-28 04:25] LABS: Alcohol Level < 10 mg/dL (0-10)
[2023-09-28 04:27] LABS: Potassium 2.9 mmol/L (3.5-5.1)
[2023-09-28 04:27] LABS: Iron 90 ug/dL (37-145); Percent Saturation 33.4 % (20-50); Thyroid Stimulating Hormone 2.08 uIU/mL (0.27-4.20); Total Iron Binding Capacity 269 mcg/dl; Unsaturated Iron Binding 179 ug/dL (112-347)
[2023-09-28 04:36] LABS: Troponin 5 6HR 9.25 ng/L (0-10)
[2023-09-28 04:37] LABS: Alanine Aminotransferase 1041 U/L (0-33)
[2023-09-28 04:55] LABS: Vitamin B12 > 2000 pg/mL (232-1245)
[2023-09-28 05:25] LABS: Hepatitis A Antibody IgM Non-Reactive (Nonreactive); Hepatitis B Core AB, Total Non-Reactive (Nonreactive); Hepatitis B Surface AB 9.7 (11.5-1000); Hepatitis B Surface Antigen Non-Reactive (Nonreactive); Hepatitis C Virus Antibody Non-Reactive (Nonreactive)
[2023-09-28] MEDS: potassium chloride ER 20 mEq Tablet 40 MEQ PO ×3 (05:28→13:05)
[2023-09-28 05:51] LABS: Folate Level > 20.0 ng/mL (4.8-37.3)
--- NOTE | 2023-09-28 06:00 | USCV_ITS ---
Binta Olivares Age: 68 Gender: F : 1955 Exam Date: 09/28/2023 08:04 Ordering Phys: Roldan Staley MD Technologist: Jose Cruz Bee Exam Location: [facility] [place] Indication: afib BP: 98 / 52 HR: 72 Rhythm: Sinus Technical Quality: Adequate MEASUREMENTS (Male / Female) Normal Values 2D ECHO LVOT Diameter 2.0 cm LV Ejection Fraction MOD 2C 62.6 % LV Ejection Fraction 2C AL 63.0 % LA Diameter 3.1 cm LA Width 3.2 cm LA Height 5.1 cm RA Width 2.9 cm RA Height 4.6 cm Aorta at Sinotubular Diameter 1.9 cm IVC Diameter 1.5 cm M-MODE Aortic Annulus Diameter 2.5 cm LA Ao Ratio MM 1.2 MV E Point Septal Separation 0.3 cm DOPPLER AV Peak Velocity 188.0 cm/s LVOT Peak Velocity 129.0 cm/s AV Area Cont Eq vti 2.5 cm squared AV Area Cont Eq pk 2.2 cm squared MV Peak Velocity 132.0 cm/s MV Area PHT 6.3 cm squared Mitral E to A Ratio 1.3 MV E' Velocity 60.5 cm/s Mitral E to MV E' Ratio 11.7 Mitral E to LV E' Lateral Ratio 11.3 Mitral E to LV E' Septal Ratio 12.2 TR Peak Velocity 311.0 cm/s TR Peak Gradient 38.7 mmHg TR Mean Velocity 240.1 cm/s TR Mean Gradient 25.2 mmHg TR Velocity Time Integral 75.6 cm Right Atrial Pressure 3.0 mmHg Pulmonary Artery Systolic Pressu 41.7 mmHg PV Peak Velocity 90.3 cm/s RV Acceleration Time 0.1 s RV Ejection Time 0.3 s RV AcT/ET 0.3 FINDINGS Left Ventricle Normal left ventricular size and systolic function, EF 68 %. No regional wall motion abnormalities. Mild left ventricular hypertrophy. Right Ventricle The right ventricle is normal in size and function. Right Atrium Upper limit of normal Left Atrium Mildly increased left atrial size. Mitral Valve Thickened mitral valve. Mild mitral annular calcification. Aortic Valve Aortic valve sclerosis. Tricuspid Valve Trace to mild tricuspid valve regurgitation. Pulmonic Valve Trace pulmonary valve regurgitation. Pericardium Normal pericardium without effusion. Aorta Normal ascending aorta dimension. IVC Normal inferior vena cava. CONCLUSIONS Normal left ventricular size and systolic function, EF 68 %. No regional wall motion abnormalities. Mild left ventricular hypertrophy. Mildly increased left atrial size. Right atrium, upper limit of normal size. Thickened mitral valve. Mild mitral annular calcification. Aortic valve sclerosis. Trace to mild tricuspid valve regurgitation. Estimated pulmonary artery peak systolic pressure 42 mm of Hg. There is no pericardial effusion. There are no intracardiac masses. No similar previous studies are available for comparison Dr Kristal Hong MD FACC (Electronically Signed) Final Date: 28 September 2023 10:14 S
[2023-09-28] MEDS: famotidine 20 mg Tablet PO ×2 (09:14→18:58)
[2023-09-28] MEDS: apixaban 5 mg Tablet PO ×2 (09:15→20:18)
[2023-09-28] MEDS: metoprolol tartrate 50 mg Tablet 25 MG PO ×2 (09:15→20:18)
[2023-09-28 09:21] LABS: Erythrocyte Sedimentation Rate 11 mm/hr (0-15)
[2023-09-28 09:29] LABS: C Reactive Protein 12.6 mg/L (0.0-4.9)
[2023-09-28 09:36] LABS: Procalcitonin 0.19 ng/mL (0-0.5)
--- NOTE | 2023-09-28 10:15 | CTR_ITS ---
PROCEDURE INFORMATION: Exam: CT Abdomen And Pelvis Without Contrast Exam date and time: 09/28/2023 11:01 AM Age: 68 years old Clinical indication: Abdominal pain; Acute; Prior surgery; Surgery date: <1 month; Surgery type: Gb; Additional info: Transamnitis TECHNIQUE: Imaging protocol: Computed tomography of the abdomen and pelvis without contrast. Radiation optimization: All CT scans at this facility use at least one of these dose optimization techniques: automated exposure control; mA and/or kV adjustment per patient size (includes targeted exams where dose is matched to clinical indication); or iterative reconstruction. REPORTING DATA: Count of CT and Cardiac NM exams in prior 12 months: This patient has received 0 known CTs and 0 known cardiac nuclear medicine studies in the 12 months prior to the current study. COMPARISON: 1. CT abdomen pelvis w con* [id number] 01/15/2020 10:17 AM RADIATION DOSE METRICS: Total DLP (mGy-cm): 469.05 FINDINGS: Liver: Normal. No mass. Gallbladder and bile ducts: Status post cholecystectomy. No ductal dilation. Pancreas: Normal. No ductal dilation. Spleen: Normal. No splenomegaly. Adrenal glands: Normal. No mass. Kidneys and ureters: Normal. No hydronephrosis. Stomach and bowel: Status post gastric bypass surgical change. No obstruction. No mucosal thickening. Appendix: No evidence of appendicitis. Intraperitoneal space: Unremarkable. No free air. No significant fluid collection. Vasculature: Unremarkable. No abdominal aortic aneurysm. Lymph nodes: Unremarkable. No enlarged lymph nodes. Urinary bladder: Unremarkable as visualized. Reproductive: Unremarkable as visualized. Bones/joints: Unremarkable. No acute fracture. Soft tissues: Unremarkable. CT/CT abdomen pelvis con [id number] IMPRESSION: No acute findings.
--- NOTE | 2023-09-28 10:15 | CTR_ITS ---
PROCEDURE INFORMATION: Exam: CTA Chest With Contrast Exam date and time: 09/28/2023 11:05 AM Age: 68 years old Clinical indication: Other: Elevated d dimer; Additional info: Elevated d dimer, recent gall bladder surgery, new afib TECHNIQUE: Imaging protocol: Computed tomographic angiography of the chest with contrast. Exam focused on the arteries. 3D rendering (Not supervised by radiologist): MIP and/or 3D reconstructed images were created by the technologist. Radiation optimization: All CT scans at this facility use at least one of these dose optimization techniques: automated exposure control; mA and/or kV adjustment per patient size (includes targeted exams where dose is matched to clinical indication); or iterative reconstruction. Contrast material: OMNI 350; Contrast volume: 80 ml; Contrast route: INTRAVENOUS (IV); REPORTING DATA: Count of CT and Cardiac NM exams in prior 12 months: This patient has received 0 known CTs and 0 known cardiac nuclear medicine studies in the 12 months prior to the current study. COMPARISON: CR (CHEST, ) 09/27/2023 8:27 PM RADIATION DOSE METRICS: Total DLP (mGy-cm): 340.68 FINDINGS: Pulmonary arteries: Normal. No pulmonary emboli. Aorta: Unremarkable. No aortic aneurysm. No aortic dissection. Lungs: Unremarkable. No consolidation. No masses. Pleural spaces: Unremarkable. No pneumothorax. No pleural effusion. Heart: Unremarkable. No cardiomegaly. No pericardial effusion. Lymph nodes: Unremarkable. No enlarged lymph nodes. Bones/joints: Unremarkable. No acute fracture. Soft tissues: Unremarkable. CT/CT angio chest PE protcl [id number] IMPRESSION: No acute findings.
[2023-09-28 10:23] LABS: Ferritin 436 ng/mL (15-150); Iron 64 ug/dL (37-145)
--- NOTE | 2023-09-28 10:29 | PC.PHAR ---
PT STATES SHE TAKES CARE OF HER OWN MEDICATIONS-PT STATES SHE IS NO LONGER TAKING CRESTOR 20MG DAILY FILLED ON 06/03/23 90D/S PT STATES SHE STOP TAKING A MONTH AGO-EXT SHOWS A [facility]CO 5-325MG RX FILLED 09/09/23 5D/S PT STATES SHE NEVER TOOK ANY OF THEM-
--- NOTE | 2023-09-28 12:35 | P.DS_ITS ---
Discharge Providers Date of Admission: 09/27/23 21:41 Date of Discharge: September 28, 2023 Attending Provider at Admission: Roldan Staley MD Attending Provider at Discharge: Andrés Jade MD Primary Care Provider: Colby Zhou MD Diagnoses at Discharge Discharge Diagnosis (1) Atrial fibrillation with rapid ventricular response: Status: Acute (2) Hypertension: Status: Acute (3) Obstructive sleep apnea: Status: Acute Reason for Visit Reason for Visit: heart palpations Hospital Course Hospital Course Binta Olivares is a 68 year old female with no significant past medical history other than hypertension, gastric bypass surgery, obstructive sleep apnea on CPAP presented to the ER today with ongoing palpitations.? As per patient she was feeling lightheaded 3-4 times today when she decided to check her heart rate which was running more than 150s so she presented to the ER.? She has had episodes of palpitations on and off many times in the past.? In the ER she was found to have atrial fibrillation with rapid ventricular response for which she was given 20 mg of IV Cardizem push and started on IV Cardizem. I have requested patient to be given 5 mg of IV metoprolol push along with continuation of Cardizem drip.? Patient denies any shortness of breath, nausea, vomiting, chest pain, dizziness, history of atrial fibrillation, history of stroke, history of bleeding diathesis. Patient was admitted to [facility] for A-fib with RVR, managed with IV metoprolol, Cardizem, she converted to normal sinus rhythm during the night, managed with metoprolol 25 mg twice daily, ambulating without significant symptomatology, no chest pain, shortness of breath. She will be discharged with Toprol 25 mg twice daily, with Eliquis 5 mg twice daily. Discussed risk and benefits of Eliquis, shared decision making, she voiced understanding, all questions answered, Jacoby Vasc 3, follow-up with primary care provider in 1 week, follow-up with cardiology in 1 week. Patient had transaminitis during hospitalization, about a week ago she had her gallbladder removed, she does report that her primary care provider was worried about transaminitis so her statin was stopped, I reviewed her blood work from patient's portal, ALT was 47, here her ALT was 1041, AST was 454, GGT 153, alk phos 220, T. bili 0.6. CT abdomen pelvis, had no acute findings, liver ultras ound had no acute findings. Acute hep panel was negative. Her ferritin was 436. No history of alcoholism. Elevated liver function could possibly from her recent gallbladder surgery, however her liver function needs to monitor very closely. Follow-up with primary care provider this week for recheck liver function, GGT, alk phos. In addition I have ordered KATIE, AMA, should follow-up with primary care provider for results. If patient's liver function remains elevated, or continues to elevate, she will need to follow-up with hepatology. Denies a family history or personal history of Stahl, she was obese and had a gastric bypass roughly a year ago, but review of her liver function was within normal limits and then Given her atrial fibrillation, her elevated D-dimer, her recent gallbladder surgery CT angiogram of the chest was ordered, negative for PE Physical Exam Const: COMMON NORMALS: no acute distress and patient oriented x3 Resp: COMMON NORMALS: normal respiratory effort, No retractions, No use of accessory muscles and clear to auscultation bilaterally AUSCULTATION: clear to auscultation bilaterally Cardio: COMMON NORMALS: regular rate, regular rhythm, S1 normal heart sound present and S2 normal heart sound present RATE: regular rate RHYTHM: regular rhythm HEART SOUNDS: S1 normal heart sound present and S2 normal heart sound present GI: COMMON NORMALS: Normal to inspection, nondistended, normoactive bowel sounds present and non-tender Extremity: COMMON NORMALS: no pedal edema Neuro: COMMON NORMALS: patient oriented x3 Psych: COMMON NORMALS: mental status grossly normal Discharge Data Studies Completed and Pending Completed Studies During Hospitalization Category Date Time Status CT abdomen pelvis wo con [id number] Routine Cat Scan 09/28/23 10:[address] angio chest PE protcl [id number] Stat Cat Scan 09/28/23 10:15 Completed XR chest 1V portable [id number] Stat Exams 09/27/23 20:14 Completed CV. echo complete* [id number] Routine Ultrasound 09/28/23 06:00 Com[place] liver [id number] Routine Ultrasound 09/28/23 01:38 Completed Pending at discharge Category Date Time Status KATIE Profile Rheumatology Stat Lab 09/28/23 09:34 Received Urinalysis Routine Lab 09/27/23 23:54 Ordered Radiology Impressions Chest X-Ray 09/27/23 20:14 IMPRESSION: No acute findings. Liver Ultrasound 09/28/23 01:38 IMPRESSION: Status post cholecystectomy. No acute process Abdomen/Pelvis CT 09/28/23 10:15 IMPRESSION: No acute findings. Chest CTA 09/28/23 10:15 IMPRESSION: No acute findings. Laboratory Results WBC 6.36 10^3/uL (3.29-11.43) 09/28/23 03:00 RBC 4.63 10^6/uL (3.85-5.65) 09/28/23 03:00 Hgb 13.80 g/dL (11.27-16.99) 09/28/23 03:00 Hct 42.3 % (36-47) 09/28/23 03:00 MCV 91.4 fl (85-98) 09/28/23 03:00 MCH 29.8 pg (27-33) 09/28/23 03:00 MCHC 32.6 g/dL (30-55) 09/28/23 03:00 RDW 13.7 % (12.1-15.1) 09/28/23 03:00 Plt Count 268 10^3/cmm (157-399) 09/28/23 03:00 MPV 10.6 fL (7.4-10.4) H 09/28/23 03:00 Neut % (Auto) 34.6 % 09/28/23 03:00 Lymph % (Auto) 45.1 % 09/28/23 03:00 [place] % (Auto) 5.5 % 09/28/23 03:00 Eos % (Auto) 13.5 % 09/28/23 03:00 Baso % (Auto) 1.1 % 09/28/23 03:00 Neut # (Auto) 2.20 10^3/uL (1.8-7.7) 09/28/23 03:00 Lymph # (Auto) 2.9 10^3/uL (0.8-4.8) 09/28/23 03:00 [place] # (Auto) 0.4 10^3/uL (0.2-0.9) 09/28/23 03:00 Eos # (Auto) 0.9 10^3/uL (0.0-0.8) H 09/28/23 03:00 Baso # (Auto) 0.1 10^3/uL (0.0-0.1) 09/28/23 03:00 Nucleated RBC % (auto) 0 % 09/28/23 03:00 Nucleated RBCs # 0.0 /100WBC 09/28/23 03:00 ESR 11 mm/hr (0-15) 09/28/23 03:00 PT 14.30 SECONDS (12.1-14.9) 09/27/23 20:16 INR 1.08 (0.8-1.2) 09/27/23 20:16 APTT 32.3 SECONDS (23.9-36.7) 09/27/23 20:16 D-Dimer 2.29 ug/mLFEU (0-0.59) H 09/27/23 20:16 Sodium 141 mmol/L (136-145) 09/28/23 03:00 Potassium 2.9 mmol/L (3.5-5.1) L 09/28/23 03:00 Chloride 106 mmol/L (98-107) 09/28/23 03:00 Carbon Dioxide 23 mmol/L (22-29) 09/28/23 03:00 Anion Gap 14.9 (5-19) 09/28/23 03:00 BUN 17 mg/dL (8-23) 09/28/23 03:00 Creatinine 0.4 mg/dL (0.5-0.9) L 09/28/23 03:00 GFR Calculation 157.8 mL/min (90-130) H 09/28/23 03:00 Glucose 102 mg/dL (65-115) 09/28/23 03:00 Estimat Average Glucose 105 09/28/23 03:00 Hemoglobin A1c 5.3 % (4.0-6.0) 09/28/23 03:00 Calculated Osmolality 294 mOsm/kg (285-295) 09/28/23 03:00 Calcium 9.0 mg/dL (8.5-10.5) 09/28/23 03:00 Phosphorus 3.4 mg/dL (2.5-4.5) 09/28/23 03:00 Magnesium 1.7 mg/dL (1.7-2.3) 09/28/23 03:00 Iron 64 ug/dL (37-145) 09/28/23 03:00 TIBC 269 mcg/dl 09/28/23 00:00 % Saturation 33.4 % (20-50) 09/28/23 00:00 Unsat Iron Binding 179 ug/dL (112-347) 09/28/23 00:00 Ferritin 436 ng/mL (15-150) H 09/28/23 03:00 Total Bilirubin 0.6 mg/dL (0.15-1.2) 09/28/23 03:00 GGT 153 U/L (5-36) H 09/28/23 03:00 AST 454 U/L (0-32) H 09/28/23 03:00 ALT 1041 U/L (0-33) H 09/28/23 03:00 Alkaline Phosphatase 220 U/L (35-105) H 09/28/23 03:00 Troponin T Baseline < 6 ng/L (0-10) 09/27/23 20:16 Troponin T 120 Minute 7.97 ng/L (0-10) 09/27/23 23:12 Delta Troponin T 1.39423 ABS# (0-10) 09/27/23 23:12 Troponin T Hi Sens 6Hr 9.25 ng/L (0-10) 09/28/23 03:00 Troponin T Hi Sens 6Hr Delta 3.95618 ng/L (0-12) 09/28/23 03:00 C-Reactive Protein 12.6 mg/L (0.0-4.9) H 09/28/23 03:00 NT-Pro-B Natriuret Pep 148 pg/mL (0-125) H 09/27/23 20:16 Total Protein 6.3 g/dL (6.6-8.7) L 09/28/23 03:00 Albumin 3.5 g/dL (3.5-5.2) 09/28/23 03:00 Globulin 2.8 g/dL (1.3-4.6) 09/28/23 03:00 Triglycerides 70 mg/dL (0-150) 09/28/23 03:00 Cholesterol 141 mg/dL (0-200) 09/28/23 03:00 LDL Cholesterol, Calc 69 mg/dL (50-129) 09/28/23 03:00 HDL Cholesterol 58 mg/dL (60-100) L 09/28/23 03:00 LDL/HDL Ratio 1.19 RATIO (0.00-3.22) 09/28/23 03:00 Cholesterol/HDL Ratio 2.43 mg/dL (0.0-4.40) 09/28/23 03:00 Vitamin B12 > 2000 pg/mL (232-1245) H 09/28/23 00:00 Folate > 20.0 ng/mL (4.8-37.3) 09/28/23 03:00 Procalcitonin 0.19 ng/mL (0-0.5) 09/28/23 03:00 TSH 2.08 uIU/mL (0.27-4.20) 09/28/23 00:00 Urine Opiates Screen Negative ng/mL (Negative) 09/27/23 22:10 Ur Barbiturates Screen Negative ng/mL (Negative) 09/27/23 22:10 Ur Phencyclidine Scrn Negative ng/mL (Negative) 09/27/23 22:10 Ur Amphetamines Screen Negative ng/mL (Negative) 09/27/23 22:10 U Benzodiazepines Scrn Negative ng/mL (Negative) 09/27/23 22:10 Urine Cocaine Screen Negative ng/mL (Negative) 09/27/23 22:10 U Marijuana (THC) Screen Negative ng/mL (Negative) 09/27/23 22:10 Ethyl Alcohol < 10 mg/dL (0-10) 09/28/23 03:00 Hepatitis A IgM Ab Non-reactive (Nonreactive) 09/28/23 03:00 Hep Bs Antigen Non-reactive (Nonreactive) 09/28/23 03:00 Hep Bs Antibody 9.7 (11.5-1000) L 09/28/23 03:00 Hep B Core Total Ab Non-reactive (Nonreactive) 09/28/23 03:00 Hepatitis C Antibody Non-reactive (Nonreactive) 09/28/23 03:00 Vitals Last Vital Signs Temp 97.9 F 09/28/23 08:00 Pulse 76 09/28/23 08:00 Resp 20 H 09/28/23 08:00 BP 110/51 09/28/23 08:00 Pulse Ox 99 09/28/23 08:00 O2 Del Method Room Air 09/28/23 08:00 FiO2 21 09/28/23 02:45 Discharge Plan Discharge Patient Disposition: Home Condition: Stable Prescriptions: New Eliquis 5 mg Tablet 5 mg PO BID@0900,2100 30 Days Qty: 60 0RF metoprolol tartrate 25 mg tablet 25 mg PO BID 30 Days Qty: 60 0RF Continued Colace 100 mg Capsule 100 mg PO DAILY calcium citrate 200 mg (950 mg) Tablet 200 mg PO TID Vitamin D3 125 mcg (5,000 unit) Tablet 10,000 unit PO TID Vitron-C 65 mg iron- 125 mg Tablet,Delayed Release (Dr/Ec) 1 tab PO DAILY Hair, Skin, Nails with Biotin 7.5-7.5-1,250 mg-unit-mcg Tablet,Chewable 2 tab PO TID PRN (Reason: UNKNOWN) DEKAs Bariatric 22.5 mg-400 mcg -500 mcg-10 mg Tablet,Chewable 1 tab PO BID potassium chloride 20 mEq tablet extended release 20 meq PO BID Discontinued olmesartan 20 mg tablet 10 mg PO BEDTIME hydrochlorothiazide 12.5 mg tablet 12.5 mg PO QAM Discharge Orders: Discharge Order (Routine); Ordered 09/28/23 Ordered By: Andrés Jade Referrals: Colby Zhou MD [Primary Care Provider] - 4-7 days (Please call Friday09/29/2023 for follow up appointment) Kristal Hong MD [Physician] - 4-7 days Discharge Diet: Cardiac Discharge Activity: Resume usual activity Patient Instructions: Opioid Safety Activity Restrictions/Additional Instructions: - If you have any chest pain or palpitations please go to the emergency room ? Please follow-up with primary care provider this week, ? Please have your primary care provider recheck your liver function ? Your ALT was 1041, your AST was 454, your alk phos was 220, your bilirubin was 0.6 ? Please follow-up with primary care provider about KATIE testing ? Eliquis is a powerful blood thinner, if you develop bloody or black stools please go to the emergency room ? Please follow-up with cardiology ? I have discharged you on metoprolol 25 mg twice daily if you feel lightheaded or dizzy, you can decrease the dose to 12.5 mg twice daily, and if you continue to feel lightheaded or dizzy you can decrease it to 6.25 mg twice daily ? If any strokelike symptoms please call 911 Discharge Attestations Time Spent in Discharge Care*: greater than 30 min Quality Metrics Clinical Quality Measures [ No reported AMI, CVA or VTE this stay] Coding Level of Care Code 32918 Total time (in minutes) for Discharge: 45 Diagnoses Atrial fibrillation with rapid ventricular response I48.91 Hypertension I10 Obstructive sleep apnea G47.33
[2023-09-28] MEDS: sodium chloride 0.9% 1,000 ML 50 ML IV (13:06)
--- NOTE | 2023-09-28 15:36 | ECG_ITS ---
[facility] Test Date: 2023-09-28 Pat Name: Binta Olivares Department: Room: 112 Gender: Female Talent Acquisition Administrator: : [id number] Requested By: Andrés Jade Order Number: [id number] Gaby MD: Kristal Hong M.D. Measurements Intervals Doss Rate: 64 P: 40 NH: 150 QRS: 19 QRSD: 85 T: 40 QT: 406 QTc: 420 Interpretive Statements SINUS RHYTHM Compared to ECG 09/28/2023 02:58:04 Sinus bradycardia no longer present Electronically Signed On 09-28-2023 22:09:47 PRINCIPAL PROCESS ENGINEER by Kristal Hong M.D. [id number]
--- NOTE | 2023-09-28 15:36 | PM.PN ---
Subjective Subjective: Patient was examined multiple times throughout the morning, into the evening time, seen in the morning, currently in normal sinus rhythm, heart rates in the 60s, denies any chest pain, no palpitations, she does tell me that recently she had her gallbladder removed, we discussed her elevated LFTs, denies any abdominal pain, nausea, vomiting, her D-dimer was elevated CT angiogram of the chest was ordered to rule out PE, which was negative, liver ultrasound was within normal limits, CT abdomen pelvis within normal limits, she was monitored as inpatient, up and ambulating, however in the early afternoon she had a 10 beat of nonsustained V. tach, discussed continued inpatient monitoring, she is agreeable, Vitals/I&O/Wt Last Vital Signs Temp 97.9 F 09/28/23 13:39 Pulse 63 09/28/23 13:39 Resp 21 H 09/28/23 13:39 BP 138/44 09/28/23 13:39 Pulse Ox 98 09/28/23 13:39 O2 Del Method Room Air 09/28/23 12:00 FiO2 21 09/28/23 02:45 09/28/23 09/28/23 09/28/23 06:59 14:59 22:59 Intake Total 1513.666 / 2520.032 480 / 480 Balance 1513.666 / 2520.032 480 / 480 Weight last 48 hrs Weight 66.587 kg Weight 66.587 kg Weight 66.134 kg Weight 63.049 kg Physical Exam Const: COMMON NORMALS: no acute distress and patient oriented x3 Resp: COMMON NORMALS: normal respiratory effort, No retractions, No use of accessory muscles and clear to auscultation bilaterally AUSCULTATION: clear to auscultation bilaterally Cardio: COMMON NORMALS: regular rate, regular rhythm, S1 normal heart sound present and S2 normal heart sound present RATE: regular rate RHYTHM: regular rhythm HEART SOUNDS: S1 normal heart sound present and S2 normal heart sound present GI: COMMON NORMALS: Normal to inspection, nondistended, normoactive bowel sounds present and non-tender Extremity: COMMON NORMALS: no pedal edema Neuro: COMMON NORMALS: patient oriented x3 Psych: COMMON NORMALS: mental status grossly normal Data 09/28/23 03:00 09/28/23 03:00 A&P Assessment and plan (1) Atrial fibrillation with rapid ventricular response: New diagnosis. Echocardiogram no acute findings, LVH Metoprolol 25 mg twice daily Will start on Eliquis 5 mg twice daily. (2) Hypertension: Goal blood pressure less than 140/90 mmHg with mean over 65. Takes amlodipine 10 mg, hydrochlorothiazide 25 mg at home. For now we will hold off. (3) Obstructive sleep apnea: Continue home CPAP (4) NSVT (nonsustained ventricular tachycardia): 10 beat nonsustained V. tach, monitor as inpatient (5) Transaminitis: AMA ordered, KATIE ordered, CT scan and liver ultrasound within normal limits, acute hep panel negative, ferritin elevated at 400 Plan Full code Cardiac diet Famotidine for PUD prophylaxis. Eliquis will suffice as DVT prophylaxis. Attestations Medical Necessity Statement*: Patient required hospitalization for A-fib, NSVT, transaminitis, inpatient, Diagnoses Atrial fibrillation with rapid ventricular response I48.91 Hypertension I10 Obstructive sleep apnea G47.33 NSVT (nonsustained ventricular tachycardia) I47.29 Transaminitis R74.01
[2023-09-28 16:22] LABS: Anion Gap 13.6 (5-19); Blood Urea Nitrogen 16 mg/dL (8-23); Calcium 8.8 mg/dL (8.5-10.5); Carbon Dioxide 22 mmol/L (22-29); Chloride 109 mmol/L (98-107); Glucose 100 mg/dL (65-115); Magnesium 1.7 mg/dL (1.7-2.3); Osmolality Calculated 291 mOsm/kg (285-295); Potassium 4.6 mmol/L (3.5-5.1); Sodium 140 mmol/L (136-145)
[2023-09-28 16:23] LABS: Troponin(5th) Baseline < 6 ng/L (0-10)
[2023-09-28 16:40] LABS: Troponin 5 2HR 6.93 ng/L (0-10); Troponin 5 2HR Delta 0.93001 ABS# (0-10)
--- NOTE | 2023-09-28 17:49 | P.CONIM_ITS ---
Providers/Reason For Consult Consulting Physician/Specialty*: SAVANNAH Hong MD/cardiology Reason for Consult*: Patient with a new onset of atrial fibrillation/nonsustained ventricular tachycardia/atypical chest symptoms Requesting Physician: Dr. Jade Attending Physician: Andrés Jade MD Primary Care Provider: Colby Zhou MD History of Present Illness History of Present Illness Binta Olivares is a 68 year old female with a history of hypertension, sleep apnea is admitted to hospital through the emergency room, where she presented with complaints of a new onset of palpitation associated with dizziness. She was found to be atrial fibrillation with rapid ventricular rate. She was placed on IV Cardizem. She is spontaneously converted to sinus rhythm. This afternoon when she was getting up and moving around, she had an episode of nonsustained ventricular tachycardia. She was complaining of some fluttery feeling in the chest at that time. She has been in the sinus rhythm otherwise. Cardiology consult is requested for further cardiac evaluation recommendations. This patient has a history of high blood pressure over the last many years. Approximately year ago, she had a weight loss surgery-modified duodenal bypass. Since then, she lost around 90 pounds. She takes occasional water pills and telmisartan for blood pressure. She also is known to have obstructive sleep apnea and is on CPAP. She has a history of palpitations off and on but never been bad enough to go to the hospital. She has no history for coronary artery disease, myocardial infarction or congestive heart failure. Her mother had a coronary bypass surgery at the age of 79. Her son at the age of 47 had heart attack and underwent PCI. Her older sister also had a coronary bypass surgery in her 60s. No other relevant family history. She denies any smoking abuse or alcohol abuse. No other substance abuse. Her usual blood pressure at home has been in the 110s and 120s. Yesterday with the tachyarrhythmia, the blood pressure dropped down to the 90s. In the hospital, the blood pressure has been staying in the 130s , most of the times, since the spontaneous cardioversion. Review of Systems Narrative: CONSTITUTIONAL: No fever or chills. EYES: No blurring of vision or other visual disturbances lately. ENT: No hoarseness of voice, auditory disturbances or sore throat. CARDIOVASCULAR: As mentioned above. RESPIRATORY: No significant cough. GASTROINTESTINAL: No hematemesis or melena. She had a gallbladder surgery a week ago. Weight loss surgery a year ago as mentioned above GENITOURINARY: No dysuria or hematuria. INTEGUMENTARY: No skin rashes or history of skin cancer. NEURO: No transient ischemic attacks or amaurosis. PSYCHIATRIC: No history of psychosis or major depression. HEMATOLOGIC: No bleeding disorders or significant anemia. ENDOCRINE: No history of polyuria or polydipsia. MUSCULOSKELETAL: No recent joint pain or swelling. ALLERGY/IMMUNOLOGY: As mentioned above. Medications/Allergies Home Medications Medication Instructions Recorded Confirmed Last Taken Type apixaban 5 mg tablet (Eliquis) 5 mg PO BID@0900,2100 30 days #60 09/28/23 Unknown Rx tabs ascorbic acid 7.5 mg-vit E 7.5 2 tab PO TID PRN UNKNOWN 09/28/23 09/28/23 Unknown History unit-biotin 1,250 mcg chewable tablet (Hair,Skin,Nails with Biotin) calcium citrate 200 mg (950 mg) 200 mg PO TID 09/28/23 09/28/23 Unknown History tablet cholecalciferol (vitamin D3) 125 10,000 unit PO TID 09/28/23 09/28/23 Unknown History mcg (5,000 unit) tablet (Vitamin D3) docusate sodium 100 mg capsule 100 mg PO DAILY 09/28/23 09/28/23 Unknown History (Colace) iron,carbonyl 65 mg-vitamin C 125 1 tab PO DAILY 09/28/23 09/28/23 Unknown History mg tablet,delayed release (Vitron-C) metoprolol tartrate 25 mg tablet 25 mg PO BID 30 days #60 tabs 09/28/23 Unknown Rx mv-mn-iron 22.5 mg-folic ac 400 1 tab PO BID 09/28/23 09/28/23 Unknown History mcg-vit K 500 [id number] chew tablet (DEKAs Bariatric) potassium chloride 20 mEq 20 meq PO BID 09/28/23 09/28/23 Unknown History tablet,extended release Allergies Allergy/AdvReac Type Severity Reaction Status Date / Time No Known Allergies Allergy Verified 09/28/23 10:20 Current Medications Generic Name Dose Route Start Last Admin Trade Name Freq PRN Reason Stop Dose Admin Apixaban 5 mg 09/28/23 09:00 09/28/23 09:15 Apixaban 5 Mg Tablet PO 5 mg BID@0900,2100 NEGRITA Administration Famotidine 20 mg 09/28/23 09:00 09/28/23 09:14 Famotidine 20 Mg Tablet PO 20 mg BID NEGRITA Administration Diltiazem HCl 50 mg/ Sodium 50 mls @ 5 mls/hr 09/27/23 21:30 09/28/23 02:00 Chloride IV 0 mg/hr .Q10H NEGRITA 0 mls/hr Infusion 5 MG/HR Sodium Chloride 1,000 mls @ 50 mls/hr 09/28/23 10:30 09/28/23 13:06 Sodium Chloride 0.9% IV 50 mls/hr .Q20H NEGRITA Administration Metoprolol Tartrate 25 mg 09/28/23 09:00 09/28/23 09:15 Metoprolol Tartrate 50 Mg Tablet PO 25 mg BID@0900,2100 NEGRITA Administration PFSH Acute PFSH: Medical History Hypertension Obstructive sleep apnea Surgical History H/O gastric bypass History of ear surgery History of knee surgery Social History Smoking and tobacco/nicotine status: never used tobacco/nicotine Vitals/I&O/Wt Last Vital Signs Temp 97.9 F 09/28/23 13:39 Pulse 63 09/28/23 13:39 Resp 21 H 09/28/23 13:39 BP 138/44 09/28/23 13:39 Pulse Ox 98 09/28/23 13:39 O2 Del Method Room Air 09/28/23 12:00 FiO2 21 09/28/23 02:45 09/28/23 09/28/23 09/28/23 06:59 14:59 22:59 Intake Total 1513.666 / 2520.032 480 / 480 Balance 1513.666 / 2520.032 480 / 480 Weight last 48 hrs Weight 146 lb 12.8 oz Weight 146 lb 12.8 oz Weight 145 lb 12.8 oz Weight 139 lb Physical Exam Narrative: GENERAL: The patient is alert and oriented times three. Not in any acute distress. HEENT: No significant pallor, icterus or lymphadenopathy.Oral cavity: There are no mucous membrane lesions. NECK: Trachea appears to be central. No masses noted. No JVD or thyromegaly appreciated. RESPIRATORY: Chest is symmetrical. No intercostals muscle retraction or any accessory muscle activation. There is no chest wall tenderness. Breath sounds are heard bilaterally. No rales or rhonchi heard. No evidence of any consolidation. BREASTS: Deferred. HEART: The heart sounds are normal. No S3 or S4. No significant murmurs. No pericardial rub ABDOMEN: No vessel pulsations or distention. No tenderness. No organomegaly appreciated. Bowel sounds are normally heard. : Deferred. RECTAL: Deferred. LYMPHATIC: No lymphadenopathy noted in the neck. EXTREMITIES: No edema or cyanosis. No clubbing. MUSCULOSKELETAL: No acute joint deformities or swelling SKIN: There are no significant rashes or ecchymosis NEUROPSYCHIATRIC: The patient is alert and oriented x3. Appears to be in a good mood. No tremors or rigidity noted. Data 09/29/23 03:58 09/29/23 03:58 Other Labs: Laboratory Last Values WBC 6.36 10^3/uL (3.29-11.43) 09/28/23 03:00 RBC 4.63 10^6/uL (3.85-5.65) 09/28/23 03:00 Hgb 13.80 g/dL (11.27-16.99) 09/28/23 03:00 Hct 42.3 % (36-47) 09/28/23 03:00 MCV 91.4 fl (85-98) 09/28/23 03:00 MCH 29.8 pg (27-33) 09/28/23 03:00 MCHC 32.6 g/dL (30-55) 09/28/23 03:00 RDW 13.7 % (12.1-15.1) 09/28/23 03:00 Plt Count 268 10^3/cmm (157-399) 09/28/23 03:00 MPV 10.6 fL (7.4-10.4) H 09/28/23 03:00 Neut % (Auto) 34.6 % 09/28/23 03:00 Lymph % (Auto) 45.1 % 09/28/23 03:00 [place]ward % (Auto) 5.5 % 09/28/23 03:00 Eos % (Auto) 13.5 % 09/28/23 03:00 Baso % (Auto) 1.1 % 09/28/23 03:00 Neut # (Auto) 2.20 10^3/uL (1.8-7.7) 09/28/23 03:00 Lymph # (Auto) 2.9 10^3/uL (0.8-4.8) 09/28/23 03:00 [place] # (Auto) 0.4 10^3/uL (0.2-0.9) 09/28/23 03:00 Eos # (Auto) 0.9 10^3/uL (0.0-0.8) H 09/28/23 03:00 Baso # (Auto) 0.1 10^3/uL (0.0-0.1) 09/28/23 03:00 Nucleated RBC % (auto) 0 % 09/28/23 03:00 Nucleated RBCs # 0.0 /100WBC 09/28/23 03:00 ESR 11 mm/hr (0-15) 09/28/23 03:00 PT 14.30 SECONDS (12.1-14.9) 09/27/23 20:16 INR 1.08 (0.8-1.2) 09/27/23 20:16 APTT 32.3 SECONDS (23.9-36.7) 09/27/23 20:16 D-Dimer 2.29 ug/mLFEU (0-0.59) H 09/27/23 20:16 Sodium 140 mmol/L (136-145) 09/28/23 13:27 Potassium 4.6 mmol/L (3.5-5.1) 09/28/23 13:27 Chloride 109 mmol/L (98-107) H 09/28/23 13:27 Carbon Dioxide 22 mmol/L (22-29) 09/28/23 13:27 Anion Gap 13.6 (5-19) 09/28/23 13:27 BUN 16 mg/dL (8-23) 09/28/23 13:27 Creatinine 0.5 mg/dL (0.5-0.9) 09/28/23 13:27 GFR Calculation 122.0 mL/min (90-130) 09/28/23 13:27 Glucose 100 mg/dL (65-115) 09/28/23 13:27 Estimat Average Glucose 105 09/28/23 03:00 Hemoglobin A1c 5.3 % (4.0-6.0) 09/28/23 03:00 Calculated Osmolality 291 mOsm/kg (285-295) 09/28/23 13:27 Calcium 8.8 mg/dL (8.5-10.5) 09/28/23 13:27 Phosphorus 3.4 mg/dL (2.5-4.5) 09/28/23 03:00 Magnesium 1.7 mg/dL (1.7-2.3) 09/28/23 13: Iron 64 ug/dL (37-145) 09/28/23 03:00 TIBC 269 mcg/dl 09/28/23 00:00 % Saturation 33.4 % (20-50) 09/28/23 00:00 Unsat Iron Binding 179 ug/dL (112-347) 09/28/23 00:00 Ferritin 436 ng/mL (15-150) H 09/28/23 03:00 Total Bilirubin 0.6 mg/dL (0.15-1.2) 09/28/23 03:00 GGT 153 U/L (5-36) H 09/28/23 03:00 AST 454 U/L (0-32) H 09/28/23 03:00 ALT 1041 U/L (0-33) H 09/28/23 03:00 Alkaline Phosphatase 220 U/L (35-105) H 09/28/23 03:00 Troponin T Baseline < 6 ng/L (0-10) 09/28/23 13:27 Troponin T 120 Minute 6.93 ng/L (0-10) 09/28/23 15:57 Delta Troponin T 0.16666 ABS# (0-10) 09/28/23 15:57 Troponin T Hi Sens 6Hr 9.25 ng/L (0-10) 09/28/23 03:00 Troponin T Hi Sens 6Hr Delta 3.74367 ng/L (0-12) 09/28/23 03:00 C-Reactive Protein 12.6 mg/L (0.0-4.9) H 09/28/23 03:00 NT-Pro-B Natriuret Pep 148 pg/mL (0-125) H 09/27/23 20:16 Total Protein 6.3 g/dL (6.6-8.7) L 09/28/23 03:00 Albumin 3.5 g/dL (3.5-5.2) 09/28/23 03:00 Globulin 2.8 g/dL (1.3-4.6) 09/28/23 03:00 Triglycerides 70 mg/dL (0-150) 09/28/23 03:00 Cholesterol 141 mg/dL (0-200) 09/28/23 03:00 LDL Cholesterol, Calc 69 mg/dL (50-129) 09/28/23 03:00 HDL Cholesterol 58 mg/dL (60-100) L 09/28/23 03:00 LDL/HDL Ratio 1.19 RATIO (0.00-3.22) 09/28/23 03:00 Cholesterol/HDL Ratio 2.43 mg/dL (0.0-4.40) 09/28/23 03:00 Vitamin B12 > 2000 pg/mL (232-1245) H 09/28/23 00:00 Folate > 20.0 ng/mL (4.8-37.3) 09/28/23 03:00 Procalcitonin 0.19 ng/mL (0-0.5) 09/28/23 03:00 TSH 2.08 uIU/mL (0.27-4.20) 09/28/23 00:00 Urine Opiates Screen Negative ng/mL (Negative) 09/27/23 22:10 Ur Barbiturates Screen Negative ng/mL (Negative) 09/27/23 22:10 Ur Phencyclidine Scrn Negative ng/mL (Negative) 09/27/23 22:10 Ur Amphetamines Screen Negative ng/mL (Negative) 09/27/23 22:10 U Benzodiazepines Scrn Negative ng/mL (Negative) 09/27/23 22:10 Urine Cocaine Screen Negative ng/mL (Negative) 09/27/23 22:10 U Marijuana (THC) Screen Negative ng/mL (Negative) 09/27/23 22:10 Ethyl Alcohol < 10 mg/dL (0-10) 09/28/23 03:00 Hepatitis A IgM Ab Non-reactive (Nonreactive) 09/28/23 03:00 Hep Bs Antigen Non-reactive (Nonreactive) 09/28/23 03:00 Hep Bs Antibody 9.7 (11.5-1000) L 09/28/23 03:00 Hep B Core Total Ab Non-reactive (Nonreactive) 09/28/23 03:00 Hepatitis C Antibody Non-reactive (Nonreactive) 09/28/23 03:00 Other data: Echocardiogram from today Normal left ventricular size and systolic function, EF 68 %. No ?regional wall motion abnormalities. Mild left ventricular ?hypertrophy. ?Mildly increased left atrial size.?Right atrium, upper limit of normal size. ?Thickened mitral valve. Mild mitral annular calcification.?Aortic valve sclerosis. ?Trace to mild tricuspid valve regurgitation.?Estimated pulmonary artery peak systolic pressure 42 mm of? Hg. ?There is no pericardial effusion.?There are no intracardiac masses.?No similar previous studies are available for comparison A&P Assessment and plan (1) New onset atrial fibrillation: Patient is back into the normal rhythm at this point. Etiology is not clear. She had an echocardiogram today. I will be reviewing the study. In the meanwhile, she may continue on the current medications. (2) NSVT (nonsustained ventricular tachycardia): She may be continue on the beta-chris. I also may start her on magnesium tablet. (3) Hypertension: Continue on the current medications. (4) Obstructive sleep apnea: Continue on the current management. Plan Based on the results of the above tests and the patient's clinical progress, further recommendations will be made We may consider doing a Myocardial perfusion imaging, to further evaluate her cardiovascular status. Thank you for the opportunity to evaluate this patient and make these recommendations Consult Attestations Medical Necessity Statement: Patient requires continued hospital stay for close monitoring and further management Coding Level of Care Code 10758 Diagnoses New onset atrial fibrillation I48.91 NSVT (nonsustained ventricular tachycardia) I47.29 Hypertension I10 Obstructive sleep apnea G47.33
--- NOTE | 2023-09-28 18:19 | ECG_ITS ---
[facility] Test Date: 2023-09-28 Pat Name: Binta Olivares Department: Room: 112 Gender: Female Dry Box Operator: : 1955 Requested By: Andrés Jade Order Number: [id number] Gaby MD: Kristal Hong M.D. Measurements Intervals [place] Rate: 63 P: 48 VT: 149 QRS: 25 QRSD: 88 T: 52 QT: 400 QTc: 410 Interpretive Statements SINUS RHYTHM Compared to ECG 09/28/2023 16:13:13 No significant changes Electronically Signed On 09-28-2023 22:23:04 CRYPTOGRAPHIC TECHNICIAN by Kristal Hong M.D. [id number]
[2023-09-28] MEDS: magnesium lactate 84 mg Tablet PO (18:58)
--- NOTE | 2023-09-28 19:40 | ECG_ITS ---
[facility] Test Date: 2023-09-29 Pat Name: Binta Olivares Department: Room: 112 Gender: Female Tailer Off: Marquezisaiah Hongid : 1955 Requested By: Kristal Hong Order Number: [id number] Gaby MD: Kristal Hong M.D. Interpretive Statements NAME OF STUDY: LEXISCAN SESTAMIBI STRESS TEST INDICATION: AFIB/VTACH, PROCEDURE: At the baseline, the EKG revealed normal sinus rhythm with a poor R wave progression. Normal ST Ts.. The baseline heart was 60 bpm with a blood pressue of 148/53 mm of Hg Lexiscan was infused over a period of 20 seconds. A total of 0.4 milligrams of Lexiscan was infused. The stress phase was continued for a total of 5 minutes. Heart rate at the end of the stress phase was 80 bpm with a blood pressure 140/44 mm of Hg. The EKG at the peak infusion revealed no significant changes. Sestamibi was injected 20 seconds after the Lexiscan infusion. Heart rate at the end of the recovery phase was 75 bpm with a blood pressure of 142/49 mm of Hg. CONCLUSION: 1. No significant EKG changes with the LexiScan infusion 2. No LexiScan induced chest pain or cardiac arrhythmia 3. Normal blood pressure and heart rate response 4. Sestamibi/sestamibi perfusion scan pending; see separate report. Electronically Signed On 10-03-2023 13:04:08 MOP HANDLE ASSEMBLER by Kristal Hong M.D. [id number]
[2023-09-28 20:34] LABS: Troponin 5 6HR Delta 0.00001 ng/L (0-12)
--- NOTE | 2023-09-28 21:36 | ECG_ITS ---
[facility] Test Date: 2023-09-28 Pat Name: Binta Olivares Department: Room: 112 Gender: Female Hopper Operator: : 1955 Requested By: Andrés Jade Order Number: [id number] Gaby MD: Kristal Hong M.D. Measurements Intervals [place] Rate: 59 P: 44 PA: 159 QRS: 12 QRSD: 83 T: 39 QT: 398 QTc: 397 Interpretive Statements SINUS BRADYCARDIA Compared to ECG 09/28/2023 18:19:00 Sinus rhythm no longer present Electronically Signed On 09-28-2023 22:24:22 STONE MILL OPERATOR by Kristal Hong M.D. [id number]
[2023-09-29] VITALS (29 sets, daily range): BP systolic 114–157; BP diastolic 47–55; PULSE 53–76; RESP 15–23; TEMP 36.6–36.7; O2SAT 96–99; BMI 25.9
[2023-09-29] MEDS: acetaminophen 325 mg Tablet 650 MG PO (04:04)
[2023-09-29 04:21] LABS: Basophils # 0.1 10^3/uL (0.0-0.1); Basophils % 1.1 %; Eosinophils # 0.8 10^3/uL (0.0-0.8); Eosinophils % 12.5 %; Hematocrit 35.5 % (36-47); Lymphocytes # 2.9 10^3/uL (0.8-4.8); Lymphocytes % 43.5 %; Mean Corpuscular HGB Conc 31.8 g/dL (30-55); Mean Corpuscular Hemoglobin 28.9 pg (27-33); Mean Corpuscular Volume 90.8 fl (85-98); Mean Platelet Volume 10.3 fL (7.4-10.4); Monocytes # 0.4 10^3/uL (0.2-0.9); Monocytes % 6.1 %; Neutrophils % 36.6 %; Nucleated Red Blood Cells % 0 %; Platelet Count 227 10^3/cmm (157-399); Red Blood Count 3.91 10^6/uL (3.85-5.65); Red Cell Distribution Width 13.7 % (12.1-15.1); White Blood Count 6.55 10^3/uL (3.29-11.43)
[2023-09-29 04:49] LABS: Alanine Aminotransferase 605 U/L (0-33); Albumin Level 3.3 g/dL (3.5-5.2); Alkaline Phosphatase 168 U/L (35-105); Aspartate Amino Transferase 142 U/L (0-32); Blood Urea Nitrogen 17 mg/dL (8-23); Calcium 8.6 mg/dL (8.5-10.5); Carbon Dioxide 24 mmol/L (22-29); Chloride 110 mmol/L (98-107); Globulin 2.1 g/dL (1.3-4.6); Glomerular Filtration Rate 157.8 mL/min (90-130); Glucose 86 mg/dL (65-115); Magnesium 1.8 mg/dL (1.7-2.3); Osmolality Calculated 295 mOsm/kg (285-295); Phosphorus 3.1 mg/dL (2.5-4.5); Sodium 142 mmol/L (136-145); Total Bilirubin 0.4 mg/dL (0.15-1.2); Total Protein 5.4 g/dL (6.6-8.7)
--- NOTE | 2023-09-29 07:10 | NMCV_ITS ---
NM magaly perf SPECT r/s* [id number] Binta Olivares Age: 68 Gender: F : 1955 Exam Date: 09/29/2023 08:00 Ordering Phys: Kristal Hong MD ([email or web address]) Technologist: KRISTAL English Exam Location: [facility] Indications: CHEST PAIN STRESS TEST Please see separate stress test report in [facility] for full findings IMAGE PROTOCOL Rest/Stress 1 Lexiscan Day Radiopharmaceutical Dose (mCi) Administration Site Administered by Rest: Tc-99m 10.7 IV KRISTAL Beltran Sestamibi Stress:Tc-99m 32.5 IV KRISTAL English Sestamisugey Rest: 29-Sep-2023 60 Discovery 630 Stress: 29-Sep-2023 30 Discovery 630 0.4mg Lexiscan. Images obtained in supine and prone position. SPECT RESULTS Technical Quality: Excellent Raw Data Analysis: Normal Image Corrections: No attenuation or motion correction applied Summed Stress Score: 2 Summed Rest Score: 0 Summed Difference Score: 2 PERFUSION FINDINGS Small area of slightly decreased aseptic was noted in the basal mid inferolateral region with some reversibility in the supine imaging. However with the prone imaging, no significant perfusion abnormalities were noted FUNCTIONAL RESULTS (calculated via Gated SPECT) Stress Image LV EF (%): 83 Stress EDV (mL):80 TID: 1.04 Stress ESV (mL):14 FUNCTIONAL FINDINGS: Segmental wall motion analysis revealing no gross wall motion abnormalities IMPRESSIONS 1. Myocardial perfusion imaging revealing a small area of reversible defect in the basal mid inferolateral region with the supine imaging, suggesting ischemia in the distribution of the left circumflex artery. However because of the inconsistency with the prone imaging, the reliability is questionable. 2. Normal LV ejection fraction of 83%. 3. LV wall motion analysis revealing no gross wall motion abnormalities. 4. Normal LV volume No similar previous studies are available for comparison Dr Kristal Hong MD FACC (Electronically Signed) Final Date: 29 September 2023 12:51 S
[2023-09-29] MEDS: regadenoson 0.4 Mg/5 ml Syringe IVP (08:32)
--- NOTE | 2023-09-29 09:56 | PC.NURSE ---
called in new Rx to [facility]
[2023-09-29] MEDS: metoprolol tartrate 50 mg Tablet 25 MG PO (10:14)
[2023-09-29] MEDS: magnesium lactate 84 mg Tablet PO (10:14)
[2023-09-29] MEDS: apixaban 5 mg Tablet PO (10:14)
[2023-09-29] MEDS: famotidine 20 mg Tablet PO (10:15)
[2023-09-29 12:38] LABS: COMPLEMENT COMPONENT C3C 111 mg/dL (83-193); COMPLEMENT COMPONENT C4C 16 mg/dL (15-57)
--- NOTE | 2023-09-29 13:27 | PM.PN ---
Subjective Subjective: Patient is feeling okay with no chest pain or palpitations. No ventricular arrhythmias on the monitor. She had a Myocardial perfusion imaging today. The results are as mentioned below. Medications: Medication Review Details: Current Medications Acetaminophen (Acetaminophen 325 Mg Tablet) 650 mg PO Q6H PRN PRN Reason: Mild/Mod Pain Or Temp >/= 101 Last Admin: 09/29/23 04:04 Dose: 650 mg Aminophylline (Aminophylline 25 Mg/Ml Sdv 10 Ml) 25 mg IVP Q2M PRN PRN Reason: see dose instructions Stop: 09/30/23 06:55 Apixaban (Apixaban 5 Mg Tablet) 5 mg PO BID@0900,2100 [facility] Last Admin: 09/29/23 10:14 Dose: 5 mg Bisacodyl (Bisacodyl 5 Mg Tablet) 10 mg PO DAILY PRN; Protocol PRN Reason: Constipation (see protocol) Famotidine (Famotidine 20 Mg Tablet) 20 mg PO BID [facility] Last Admin: 09/29/23 10:15 Dose: 20 mg Diltiazem HCl 50 mg/ Sodium (Chloride) 50 mls @ 5 mls/hr IV .Q10H [facility] Last Admin: 09/29/23 13:21 Dose: Not Given Sodium Chloride (Sodium Chloride 0.9%) 1,000 mls @ 50 mls/hr IV .Q20H [facility] Last Admin: 09/29/23 07:33 Dose: Not Given Lactulose (Lactulose Oral Liq 20 Gm/30 Ml Udc) 10 gm PO DAILY PRN; Protocol PRN Reason: Constipation (see protocol) Magnesium Hydroxide (Magnesium Hydroxide 30 Ml Udc) 30 ml PO DAILY PRN; Protocol PRN Reason: Constipation (see protocol) Magnesium Lactate (Magnesium Lactate 84 Mg Tablet) 84 mg PO BID [facility] Last Admin: 09/29/23 10:14 Dose: 84 mg Metoprolol Tartrate (Metoprolol Tartrate 50 Mg Tablet) 25 mg PO BID@0900,2100 [facility] Last Admin: 09/29/23 10:14 Dose: 25 mg Morphine Sulfate (Morphine 4 Mg/Ml Sdv 1 Ml) 2 mg IVP Q4H PRN PRN Reason: SEVERE PAIN Nitroglycerin (Nitroglycerin 0.4 Mg Sublingual Tablet) 0.4 mg SUBLINGUAL Q5M PRN PRN Reason: CHEST PAIN Stop: 09/30/23 06:55 Ondansetron HCl (Ondansetron 2 Mg/Ml Sdv 2 Ml) 4 mg IVP Q8H PRN PRN Reason: vomiting, or N/V if npo Ondansetron HCl (Ondansetron 2 Mg/Ml Sdv 2 Ml) 4 mg IVP Q2M PRN PRN Reason: NAUSEA Vitals/I&O/Wt Last Vital Signs Temp 98.1 F 09/29/23 04:00 Pulse 76 09/29/23 08:47 Resp 17 09/29/23 07:30 BP 145/55 09/29/23 13:00 Pulse Ox 99 09/29/23 04:00 O2 Del Method Room Air 09/29/23 04:00 FiO2 21 09/28/23 22:15 09/28/23 09/29/23 09/29/23 22:59 06:59 14:59 Intake Total 480 / 960 0 / 960 360 / 360 Balance 480 / 960 0 / 960 360 / 360 Weight last 48 hrs Weight 146 lb 12.8 oz Weight 146 lb 12.8 oz Weight 146 lb 12.8 oz Weight 145 lb 12.8 oz Weight 139 lb Physical Exam Narrative: GENERAL: The patient is alert and oriented times three. Not in any acute distress. HEENT: No significant pallor, icterus or lymphadenopathy.Oral cavity: There are no mucous membrane lesions. NECK: Trachea appears to be central. No masses noted. No JVD or thyromegaly appreciated. RESPIRATORY: Chest is symmetrical. No intercostals muscle retraction or any accessory muscle activation. There is no chest wall tenderness. Breath sounds are heard bilaterally. No rales or rhonchi heard. No evidence of any consolidation. BREASTS: Deferred. HEART: The heart sounds are normal. No S3 or S4. No significant murmurs. No pericardial rub ABDOMEN: No vessel pulsations or distention. No tenderness. No organomegaly appreciated. Bowel sounds are normally heard. : Deferred. RECTAL: Deferred. LYMPHATIC: No lymphadenopathy noted in the neck. EXTREMITIES: No edema or cyanosis. No clubbing. MUSCULOSKELETAL: No acute joint deformities or swelling SKIN: There are no significant rashes or ecchymosis NEUROPSYCHIATRIC: The patient is alert and oriented x3. Appears to be in a good mood. No tremors or rigidity noted. Data 09/29/23 03:58 09/29/23 03:58 Other Labs: Laboratory Last Values WBC 6.55 10^3/uL (3.29-11.43) 09/29/23 03:58 RBC 3.91 10^6/uL (3.85-5.65) 09/29/23 03:58 Hgb 11.30 g/dL (11.27-16.99) 09/29/23 03:58 Hct 35.5 % (36-47) L 09/29/23 03:58 MCV 90.8 fl (85-98) 09/29/23 03:58 MCH 28.9 pg (27-33) 09/29/23 03:58 MCHC 31.8 g/dL (30-55) 09/29/23 03:58 RDW 13.7 % (12.1-15.1) 09/29/23 03:58 Plt Count 227 10^3/cmm (157-399) 09/29/23 03:58 MPV 10.3 fL (7.4-10.4) 09/29/23 03:58 Neut % (Auto) 36.6 % 09/29/23 03:58 Lymph % (Auto) 43.5 % 09/29/23 03:58 [place] % (Auto) 6.1 % 09/29/23 03:58 Eos % (Auto) 12.5 % 09/29/23 03:58 Baso % (Auto) 1.1 % 09/29/23 03:58 Neut # (Auto) 2.40 10^3/uL (1.8-7.7) 09/29/23 03:58 Lymph # (Auto) 2.9 10^3/uL (0.8-4.8) 09/29/23 03:58 [place] # (Auto) 0.4 10^3/uL (0.2-0.9) 09/29/23 03:58 Eos # (Auto) 0.8 10^3/uL (0.0-0.8) 09/29/23 03:58 Baso # (Auto) 0.1 10^3/uL (0.0-0.1) 09/29/23 03:58 Nucleated RBC % (auto) 0 % 09/29/23 03:58 Nucleated RBCs # 0.0 /100WBC 09/29/23 03:58 ESR 11 mm/hr (0-15) 09/28/23 03:00 PT 14.30 SECONDS (12.1-14.9) 09/27/23 20:16 INR 1.08 (0.8-1.2) 09/27/23 20:16 APTT 32.3 SECONDS (23.9-36.7) 09/27/23 20:16 D-Dimer 2.29 ug/mLFEU (0-0.59) H 09/27/23 20:16 Sodium 142 mmol/L (136-145) 09/29/23 03:58 Potassium 4.0 mmol/L (3.5-5.1) 09/29/23 03:58 Chloride 110 mmol/L (98-107) H 09/29/23 03:58 Carbon Dioxide 24 mmol/L (22-29) 09/29/23 03:58 Anion Gap 12.0 (5-19) 09/29/23 03:58 BUN 17 mg/dL (8-23) 09/29/23 03:58 Creatinine 0.4 mg/dL (0.5-0.9) L 09/29/23 03:58 GFR Calculation 157.8 mL/min (90-130) H 09/29/23 03:58 Glucose 86 mg/dL (65-115) 09/29/23 03:58 Estimat Average Glucose 105 09/28/23 03:00 Hemoglobin A1c 5.3 % (4.0-6.0) 09/28/23 03:00 Calculated Osmolality 295 mOsm/kg (285-295) 09/29/23 03:58 Calcium 8.6 mg/dL (8.5-10.5) 09/29/23 03:58 Phosphorus 3.1 mg/dL (2.5-4.5) 09/29/23 03:58 Magnesium 1.8 mg/dL (1.7-2.3) 09/29/23 03:58 Iron 64 ug/dL (37-145) 09/28/23 03:00 TIBC 269 mcg/dl 09/28/23 00:00 % Saturation 33.4 % (20-50) 09/28/23 00:00 Unsat Iron Binding 179 ug/dL (112-347) 09/28/23 00:00 Ferritin 436 ng/mL (15-150) H 09/28/23 03:00 Total Bilirubin 0.4 mg/dL (0.15-1.2) 09/29/23 03:58 GGT 153 U/L (5-36) H 09/28/23 03:00 AST 142 U/L (0-32) H 09/29/23 03:58 ALT 605 U/L (0-33) H 09/29/23 03:58 Alkaline Phosphatase 168 U/L (35-105) H 09/29/23 03:58 Troponin T Baseline < 6 ng/L (0-10) 09/28/23 13:27 Troponin T 120 Minute 6.93 ng/L (0-10) 09/28/23 15:57 Delta Troponin T 0.92995 ABS# (0-10) 09/28/23 15:57 Troponin T Hi Sens 6Hr 6.0 ng/L (0-10) 09/28/23 19:19 Troponin T Hi Sens 6Hr Delta 0.82703 ng/L (0-12) 09/28/23 19:19 C-Reactive Protein 12.6 mg/L (0.0-4.9) H 09/28/23 03:00 NT-Pro-B Natriuret Pep 148 pg/mL (0-125) H 09/27/23 20:16 Total Protein 5.4 g/dL (6.6-8.7) L 09/29/23 03:58 Albumin 3.3 g/dL (3.5-5.2) L 09/29/23 03:58 Globulin 2.1 g/dL (1.3-4.6) 09/29/23 03:58 Triglycerides 70 mg/dL (0-150) 09/28/23 03:00 Cholesterol 141 mg/dL (0-200) 09/28/23 03:00 LDL Cholesterol, Calc 69 mg/dL (50-129) 09/28/23 03:00 HDL Cholesterol 58 mg/dL (60-100) L 09/28/23 03:00 LDL/HDL Ratio 1.19 RATIO (0.00-3.22) 09/28/23 03:00 Cholesterol/HDL Ratio 2.43 mg/dL (0.0-4.40) 09/28/23 03:00 Vitamin B12 > 2000 pg/mL (232-1245) H 09/28/23 00:00 Folate > 20.0 ng/mL (4.8-37.3) 09/28/23 03:00 Procalcitonin 0.19 ng/mL (0-0.5) 09/28/23 03:00 TSH 2.08 uIU/mL (0.27-4.20) 09/28/23 00:00 Urine Opiates Screen Negative ng/mL (Negative) 09/27/23 22:10 Ur Barbiturates Screen Negative ng/mL (Negative) 09/27/23 22:10 Ur Phencyclidine Scrn Negative ng/mL (Negative) 09/27/23 22:10 Ur Amphetamines Screen Negative ng/mL (Negative) 09/27/23 22:10 U Benzodiazepines Scrn Negative ng/mL (Negative) 09/27/23 22:10 Urine Cocaine Screen Negative ng/mL (Negative) 09/27/23 22:10 U Marijuana (THC) Screen Negative ng/mL (Negative) 09/27/23 22:10 Ethyl Alcohol < 10 mg/dL (0-10) 09/28/23 03:00 Complement C3c 111 mg/dL (83-193) 09/28/23 09:34 Complement C4c 16 mg/dL (15-57) 09/28/23 09:34 Hepatitis A IgM Ab Non-reactive (Nonreactive) 09/28/23 03:00 Hep Bs Antigen Non-reactive (Nonreactive) 09/28/23 03:00 Hep Bs Antibody 9.7 (11.5-1000) L 09/28/23 03:00 Hep B Core Total Ab Non-reactive (Nonreactive) 09/28/23 03:00 Hepatitis C Antibody Non-reactive (Nonreactive) 09/28/23 03:00 Other data: The Myocardial perfusion imaging from today ?1.? Myocardial perfusion imaging revealing a small area of reversible defect in ?the basal mid inferolateral region with the supine imaging, suggesting ischemia ?in the distribution of the left circumflex artery.? However because of the ?inconsistency with the prone imaging, the reliability is questionable. ?2.? Normal LV ejection fraction of 83%. ?3.? LV wall motion analysis revealing no gross wall motion abnormalities. ?4.? Normal LV volume ?No similar previous studies are available for comparison A&P Assessment and plan (1) New onset atrial fibrillation: The patient continues to remain in sinus rhythm. No recurrence of atrial fibrillation or ventricular arrhythmia. She had the Myocardial perfusion imaging today. She was found to have a small area of reversible defect in the mid and apical inferolateral region, inconsistent with the prone imaging. (2) NSVT (nonsustained ventricular tachycardia): No recurrence of ventricular tachycardia. Patient is tolerating the medication so far well (3) Hypertension: Continue on the current medications. The blood pressure seems to be fairly under control. (4) Obstructive sleep apnea: Patient has been on the CPAP treatment for a long time. Advised to continue the same. Plan I discussed with the patient in detail, the implication of the test findings. The reversible defect in the inferolateral wall is not very convincing. The patient has no chest pain or any specific ischemic symptoms. So at this point, it may be appropriate to continue on the current treatment. May consider a cardiac catheterization, if she has recurrence of nonsustained ventricular tachycardia or any specific ischemic symptoms. This was discussed with the patient and her family in detail which is understood well. If the patient continues to remain stable otherwise, may be discharged home today. Need to be seen in the [facility] in 1 week. I will be seen in the office in 1 month. Attestations Medical Necessity Statement*: Disposition as per the primary Coding Level of Care Code 76744 Diagnoses New onset atrial fibrillation I48.91 NSVT (nonsustained ventricular tachycardia) I47.29 Hypertension I10 Obstructive sleep apnea G47.33
[2023-09-29 15:28] LABS: COMPLEMENT, TOTAL (CH50) >60 U/mL (31-60)
--- NOTE | 2023-09-29 17:09 | PC.NURSE ---
Discharge Note Patient discharged to [home] via [w/c to POV] accompanied by [family]. Discharge instructions reviewed with patient and/or resources representative. Mobile pharmacy medications and/or prescriptions provided. Belongings/home medications returned.
[2023-09-30 12:31] LABS: CENTROMERE B ANTIBODY <1.0 NEG AI (<1.0 NEG); JO-1 ANTIBODY <1.0 NEG AI (<1.0 NEG); RNP ANTIBODY <1.0 NEG AI (<1.0 NEG); SCL-70 ANTIBODY <1.0 NEG AI (<1.0 NEG); SJOGREN'S ANTIBODY (SS-A) <1.0 NEG AI (<1.0 NEG); SM ANTIBODY <1.0 NEG AI (<1.0 NEG); SS-B <1.0 NEG AI (<1.0 NEG)
[2023-10-01 09:05] LABS: ANA SCREEN, IFA POSITIVE (NEGATIVE)
[2023-10-06 11:44] LABS: THYROID PEROXIDASE ANTIBODIES 1 IU/mL (<9)
[2023-10-06 16:48] LABS: DNA AB (DS) CRITHIDIA,IFA NEGATIVE (NEGATIVE)
== END 2023-09-29 16:00 | disposition home or self-care (01) | DRG 310 ==
LOC: ER 22:40 → CSU 22:53
PROVIDERS: Admitting Provider Student in an Organized Health Care Education/Training Program; Emergency Provider Internal Medicine; PCP Family Medicine; Visit Provider Family Medicine
DX: I48.91 Unspecified atrial fibrillation (principal); I10 Essential (primary) hypertension; Z98.84 Bariatric surgery status; G47.33 Obstructive sleep apnea (adult) (pediatric); Z99.89 Dependence on other enabling machines and devices; R74.01 Elevation of levels of liver transaminase levels; I47.20 Ventricular tachycardia, unspecified
CPT/HCPCS: 36415; 71045; 71275; 74176; 76705; 78452; 80048; 80053; 80061; 80306; 80307; 82607; 82728; 82746; 82977; 83036; 83516; 83540; 83550; 83735; 83880; 84100; 84145; 84443; 84484; 85025; 85378; 85610; 85651; 85730; 86140; 86160; 86162; 86235; 86255; 86376; 86705; 86706; 86709; 86803; 87340; 93005; 93306; 94660; 94664; 96365; 96375; 99285; A9500; G0378; J2785; J3490; J7030; Q9967

== ENCOUNTER → 2023-10-08 09:27 | Outpatient (BNVA) | payer MEDICARE, OTHER, SELFPAY | PROVIDERS: PCP Family Medicine; Visit Provider Nurse Practitioner Family | DX: I48.91 Unspecified atrial fibrillation (principal) | CPT/HCPCS: 93005; 99214 ==

== ENCOUNTER → 2023-10-29 14:48 | Outpatient (BNVA) | payer MEDICARE, OTHER, SELFPAY | PROVIDERS: PCP Family Medicine; Visit Provider Internal Medicine Cardiovascular Disease | DX: I48.91 Unspecified atrial fibrillation (principal); I10 Essential (primary) hypertension; G47.33 Obstructive sleep apnea (adult) (pediatric); Z79.01 Long term (current) use of anticoagulants | CPT/HCPCS: 99214 ==

== ENCOUNTER 2023-12-29 20:00 | Outpatient (CLI) | payer MEDICARE, OTHER, SELFPAY | END 2023-12-29 20:01 | disposition home or self-care (01) | LOC: SLEEP 12-30 06:04 | PROVIDERS: PCP Family Medicine; Visit Provider Family Medicine | DX: G47.10 Hypersomnia, unspecified (principal); R40.0 Somnolence; R06.83 Snoring | CPT/HCPCS: 95810 ==

== ENCOUNTER 2024-03-29 08:16 | Outpatient (CLI) | payer MEDICARE, OTHER, SELFPAY ==
--- NOTE | 2024-03-29 08:24 | MM_ITS ---
WS: [id number] BILATERAL SCREENING DIGITAL TOMOSYNTHESIS MAMMOGRAM WITH CAD HISTORY: SCREENING COMPARISON: 03/26/2023 and 03/14/2022 Bilateral CC and MLO views with tomosynthesis and synthetic mammography submitted. Computer aided det ection analyzed. Breast composition: There are scattered areas of fibroglandular density. No suspicious masses, microc alcifications or architectural distortion. Bilateral breast arterial calcifications. No mass. MM/[place] [id number] IMPRESSION: BI-RADS: 2-Benign FOLLOW UP: 1 Year Follow-up
== END 2024-03-29 08:17 | disposition home or self-care (01) ==
PROVIDERS: PCP Family Medicine; Visit Provider Family Medicine
DX: Z12.31 Encounter for screening mammogram for malignant neoplasm of breast (principal)
CPT/HCPCS: 77063; 77067

== ENCOUNTER 2024-04-20 21:18 | Emergency (ER) | payer MEDICARE, OTHER, SELFPAY ==
[2024-04-20 21:25] VITALS: BP 92/65; PULSE 132; RESP 16; TEMP 36.3; O2SAT 97
--- NOTE | 2024-04-20 21:28 | ECG_ITS ---
[facility] Test Date: 2024-04-20 Pat Name: Binta Olivares Department: Room: Gender: Female Central Station Operator: : 1955 Requested By: Wesly Gillis Order Number: [id number] Gaby MD: Delgado Zuñiga M.D. Measurements Intervals [place] Rate: 102 P: 48 CA: 157 QRS: 25 QRSD: 88 T: 55 QT: 323 QTc: 422 Interpretive Statements SINUS RHYTHM WITH RUN ON SUPRAVENTRICULAR TACHCYARDIA Compared to ECG 10/08/2023 09:58:31 Sinus bradycardia no longer present Electronically Signed On 04-21-2024 10:32:09 CDT by Delgado Zuñiga M.D. [email or web address]/store/NU/[id number] f
--- NOTE | 2024-04-20 21:29 | XRR_ITS ---
PROCEDURE INFORMATION: Exam: XR Chest Exam date and time: 04/20/2024 9:32 PM Age: 68 years old Clinical indication: Other: Palpitations TECHNIQUE: Imaging protocol: Radiologic exam of the chest. Views: 1 view. COMPARISON: CT angio chest PE protcl [id number] 09/28/2023 11:05 AM FINDINGS: Lungs: Unremarkable. No consolidation. Pleural spaces: Unremarkable. No pleural effusion. No pneumothorax. Heart/Mediastinum: Unremarkable. No cardiomegaly. Bones/joints: Unremarkable. XR/XR chest 1V portable [id number] IMPRESSION: No acute findings.
--- NOTE | 2024-04-20 21:33 | ED_ITS ---
HPI - Arrhythmia/Palpitations 2 General: Chief Complaint: Arrhythmia/Palpitations Stated Complaint: palpitations Time Seen by Provider: 04/20/24 21:29 History of Present Illness: Patient presents to the ER with complaints of heart racing. Patient states this been going on for about 2 hours. Patient does have a history of A-fib with RVR. Patient is on Eliquis 5 mg daily. She also sees cardiology patient does see Dr. Hal Khan. Patient does have a history of A-fib with RVR and is on Eliquis 5 mg daily, metoprolol 25 mg twice daily, patient denies any chest pain, shortness of breath, nausea vomiting, Review of Systems 2 General: Reports: 10 or more systems reviewed and unremarkable except in HPI and below PFSH ED 2 PFSH: Medical History Obstructive sleep apnea Hypertension Surgical History H/O gastric bypass History of ear surgery History of knee surgery Social History Smoking and tobacco/nicotine status: never used tobacco/nicotine Physical Exam 2 Const: COMMON NORMALS: no acute distress, average body habitus, patient oriented x3, no limitations, healthy appearing, alert and well nourished HENMT: COMMON NORMALS: normocephalic, atraumatic, hearing grossly normal bilaterally, external ears normal, Normal external nose present and moist oral mucous membranes HEAD & SCALP: normocephalic and atraumatic NOSE: Normal external nose present EXTERNAL EAR: Yes external ears normal Neck/C-Spine: COMMON NORMALS: no JVD Chest: COMMONS NORMALS: normal inspection of the chest and normal palpation of entire chest wall Resp: COMMON NORMALS: normal respiratory effort, No retractions, No use of accessory muscles and clear to auscultation bilaterally AUSCULTATION: clear to auscultation bilaterally Cardio: COMMON NORMALS: no JVD, regular rate (Tachycardic), S1 normal heart sound present, S2 normal heart sound present, No gallops present (Cardio), No clicks present (Cardio) and No murmurs present (Cardio); negative for regular rhythm (Irregularly irregular rhythm) RATE: regular rate (Tachycardic) RHYTHM: abnormal rhythm (Irregularly irregular rhythm) HEART SOUNDS: S1 normal heart sound present and S2 normal heart sound present GI: COMMON NORMALS: Normal to inspection, nondistended, normoactive bowel sounds present, Soft to palpation, non-tender, No hepatosplenomegaly present and no masses PALPATION: Yes Soft to palpation and Yes No hepatosplenomegaly present Neuro: COMMON NORMALS: patient oriented x3 SENSORIUM/ORIENTATION: Yes alert Course 2 Vital Signs: Vital signs: Vital Signs Temperature 97.3 F L 04/20/24 21:25 Pulse Rate 132 H 04/20/24 21:25 Respiratory Rate 16 04/20/24 21:25 Blood Pressure 92/65 04/20/24 21:25 Pulse Oximetry 97 04/20/24 21:25 MDM - Arrhythmia/Palpitations Medical Decision Making Patient had lab work with serial troponins serial EKGs, chest x-ray, patient was paroxysmal A-fib with varying rates between 100 to 140 bpm. Patient was given 20 mg Cardizem, and 2 doses of Cardizem 30 mg orally. This definitely helped the patient stay in a normal rhythm more with a few episodes of tachycardia. 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 Continue anticoagulation. Differential Diagnosis Likely artial fibrillation Medical Records I reviewed the patient's medical records. Lab Data I reviewed the patient's lab results. 04/20/24 21:49 04/20/24 21:49 Radiology Impressions Chest X-Ray 04/20/24 21:29 IMPRESSION: No acute findings. Laboratory Results WBC 8.10 10^3/uL (3.29-11.43) 04/20/24 21:49 RBC 4.48 10^6/uL (3.85-5.65) 04/20/24 21:49 Hgb 13.50 g/dL (11.27-16.99) 04/20/24 21:49 Hct 41.1 % (36-47) 04/20/24 21:49 MCV 91.7 fl (85-98) 04/20/24 21:49 MCH 30.1 pg (27-33) 04/20/24 21:49 MCHC 32.8 g/dL (30-55) 04/20/24 21:49 RDW 12.9 % (12.1-15.1) 04/20/24 21:49 Plt Count 253 10^3/cmm (157-399) 04/20/24 21:49 MPV 10.9 fL (7.4-10.4) H 04/20/24 21:49 Neut % (Auto) 37.3 % 04/20/24 21:49 Lymph % (Auto) 45.3 % 04/20/24 21:49 [place] % (Auto) 7.5 % 04/20/24 21:49 Eos % (Auto) 8.9 % 04/20/24 21:49 Baso % (Auto) 0.9 % 04/20/24 21:49 Neut # (Auto) 3.02 10^3/uL (1.8-7.7) 04/20/24 21:49 Lymph # (Auto) 3.7 10^3/uL (0.8-4.8) 04/20/24 21:49 [place] # (Auto) 0.6 10^3/uL (0.2-0.9) 04/20/24 21:49 Eos # (Auto) 0.7 10^3/uL (0.0-0.8) 04/20/24 21:49 Baso # (Auto) 0.1 10^3/uL (0.0-0.1) 04/20/24 21:49 Nucleated RBC % (auto) 0 % 04/20/24 21:49 Nucleated RBCs # 0.0 /100WBC 04/20/24 21:49 Sodium 140 mmol/L (136-145) 04/20/24 21:49 Potassium 4.0 mmol/L (3.5-5.1) 04/20/24 21:49 Chloride 104 mmol/L (98-107) 04/20/24 21:49 Carbon Dioxide 25 mmol/L (22-29) 04/20/24 21:49 Anion Gap 15.0 (5-19) 04/20/24 21:49 BUN 23 mg/dL (8-23) 04/20/24 21:49 Creatinine 0.4 mg/dL (0.5-0.9) L 04/20/24 21:49 GFR Calculation 157.8 mL/min (90-130) H 04/20/24 21:49 Glucose 97 mg/dL (65-115) 04/20/24 21:49 Calculated Osmolality 294 mOsm/kg (285-295) 04/20/24 21:49 Calcium 9.1 mg/dL (8.5-10.5) 04/20/24 21:49 Magnesium 1.9 mg/dL (1.7-2.3) 04/20/24 21:49 Total Bilirubin 0.3 mg/dL (0.15-1.2) 04/20/24 21:49 AST 29 U/L (0-32) 04/20/24 21:49 ALT 36 U/L (0-33) H 04/20/24 21:49 Alkaline Phosphatase 130 U/L (35-105) H 04/20/24 21:49 Troponin T Baseline < 6 ng/L (0-10) 04/20/24 21:49 Troponin T 120 Minute 6.00 ng/L (0-10) 04/20/24 23:31 Delta Troponin T 0.85435 ABS# (0-10) 04/20/24 23:31 Total Protein 6.6 g/dL (6.6-8.7) 04/20/24 21:49 Albumin 4.2 g/dL (3.5-5.2) 04/20/24 21:49 Globulin 2.4 g/dL (1.3-4.6) 04/20/24 21:49 TSH 2.22 uIU/mL (0.27-4.20) 04/20/24 21:49 All radiology interpretation(s) finalized by discharge EKG Data EKG 1: I personally reviewed and interpreted this EKG as follows: EKG interpretation date: 04/20/24 EKG interpretation time: 21:20 Interpretation: Ventricular rate 102 bpm, CT interval 157, QRS duration 88, QTc of 382, sinus tach with occasional PVC Other EKG comments: Chest X-Ray 04/20/24 21:29 IMPRESSION: No acute findings. Discharge Plan Discharge Patient Disposition: Home Clinical Impression: Atrial fibrillation with rapid ventricular response Condition: Stable Prescriptions: New Cardizem 30 mg tablet 30 mg PO Q6H PRN (Reason: A fib with heart rate greater than 100 bpm ) Qty: 30 0RF No Action metoprolol tartrate 25 mg tablet 25 mg PO BID 30 Days Qty: 180 3RF Eliquis 5 mg tablet 5 mg PO BID Qty: 60 3RF hydrochlorothiazide 12.5 mg capsule 12.5 mg PO DAILY Qty: 1 6RF Colace 100 mg Capsule 100 mg PO DAILY calcium citrate 200 mg (950 mg) Tablet 200 mg PO TID Vitamin D3 125 mcg (5,000 unit) Tablet 10,000 unit PO TID Vitron-C 65 mg iron- 125 mg Tablet,Delayed Release (Dr/Ec) 1 tab PO DAILY Hair, Skin, Nails with Biotin 7.5-7.5-1,250 mg-unit-mcg Tablet,Chewable 2 tab PO TID PRN (Reason: UNKNOWN) potassium chloride 20 mEq tablet extended release 20 meq PO BID Discharge Orders: Discharge ED (Routine); Ordered 04/21/24 Ordered By: Wesly Gillis Referrals: Colby Zhou MD [Primary Care Provider] - 1 week Patient Instructions: A-fib (Atrial Fibrillation) (ED) Activity Restrictions/Additional Instructions: Your lab work was benign. Your EKGs did show you are going in and out of atrial fibrillation. You were given IV and oral Cardizem in the ER which helped your rate. You were giving a prescription for Cardizem to go home on to take as needed for heart rate greater than 100 bpm. Please follow-up with your primary care doctor or wax ball knock out worker within the next week. They may want to adjust your medication. 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
[2024-04-20] MEDS: dilTIAZem 5 mg/mL SDV 5 mL 20 MG IVP (21:40)
[2024-04-20 22:00] VITALS: BP 121/64; PULSE 76; RESP 22; O2SAT 94
[2024-04-20 22:01] LABS: Basophils # 0.1 10^3/uL (0.0-0.1); Basophils % 0.9 %; Eosinophils # 0.7 10^3/uL (0.0-0.8); Eosinophils % 8.9 %; Hematocrit 41.1 % (36-47); Lymphocytes # 3.7 10^3/uL (0.8-4.8); Lymphocytes % 45.3 %; Mean Corpuscular HGB Conc 32.8 g/dL (30-55); Mean Corpuscular Hemoglobin 30.1 pg (27-33); Mean Corpuscular Volume 91.7 fl (85-98); Mean Platelet Volume 10.9 fL (7.4-10.4); Monocytes # 0.6 10^3/uL (0.2-0.9); Monocytes % 7.5 %; Neutrophils # 3.02 10^3/uL (1.8-7.7); Neutrophils % 37.3 %; Nucleated Red Blood Cells % 0 %; Platelet Count 253 10^3/cmm (157-399); Red Blood Count 4.48 10^6/uL (3.85-5.65); Red Cell Distribution Width 12.9 % (12.1-15.1)
[2024-04-20 22:23] LABS: Troponin(5th) Baseline < 6 ng/L (0-10)
[2024-04-20 22:30] VITALS: BP 118/66; PULSE 108; RESP 22; O2SAT 93
[2024-04-20 22:32] LABS: Alanine Aminotransferase 36 U/L (0-33); Albumin Level 4.2 g/dL (3.5-5.2); Alkaline Phosphatase 130 U/L (35-105); Aspartate Amino Transferase 29 U/L (0-32); Blood Urea Nitrogen 23 mg/dL (8-23); Calcium 9.1 mg/dL (8.5-10.5); Carbon Dioxide 25 mmol/L (22-29); Chloride 104 mmol/L (98-107); Creatinine Clr Calc Pharmacy 60.2157; Globulin 2.4 g/dL (1.3-4.6); Glomerular Filtration Rate 157.8 mL/min (90-130); Glucose 97 mg/dL (65-115); Magnesium 1.9 mg/dL (1.7-2.3); Osmolality Calculated 294 mOsm/kg (285-295); Sodium 140 mmol/L (136-145); Thyroid Stimulating Hormone 2.22 uIU/mL (0.27-4.20); Total Bilirubin 0.3 mg/dL (0.15-1.2); Total Protein 6.6 g/dL (6.6-8.7)
[2024-04-20 23:00] VITALS: BP 123/52; PULSE 103; RESP 20; O2SAT 94
[2024-04-20] MEDS: dilTIAZem 30 mg Tablet PO (23:28)
[2024-04-20 23:30] VITALS: BP 150/73; PULSE 118; RESP 22; O2SAT 92
--- NOTE | 2024-04-20 23:30 | ECG_ITS ---
[facility] Test Date: 2024-04-20 Pat Name: Binta Olivares Department: Room: Gender: Female Leadership Intern: : 1955 Requested By: Wesly Gillis Order Number: [id number] Gaby MD: Delgado Zuñiga M.D. Measurements Intervals [place] Rate: 120 P: 0 [place]: 0 QRS: 6 QRSD: 110 T: 54 QT: 369 QTc: 523 Interpretive Statements ATRIAL FIBRILLATION WITH RAPID VENTRICULAR RESPONSE LOW QRS VOLTAGE IN PRECORDIAL LEADS [QRS DEFLECTION < 1.0 mV IN CHEST LEADS] ABNORMAL RHYTHM ECG Compared to ECG 04/20/2024 21:20:04 Low QRS voltage now present Sinus tachycardia no longer present Electronically Signed On 04-21-2024 10:33:03 CDT by Delgado Zuñiga M.D. [email or web address] Medical Technologiesgulf coast veterans health care systemAlkami Technologyparma community general hospital.[employer]/store/OM/[id number]/[id number]
[2024-04-20 23:56] LABS: Troponin 5 2HR Delta 0.00001 ABS# (0-10)
[2024-04-21] VITALS: BP 120/61; PULSE 73; RESP 18; O2SAT 95
[2024-04-21 00:30] VITALS: BP 146/76; PULSE 109; RESP 19; O2SAT 92
[2024-04-21] MEDS: dilTIAZem 30 mg Tablet PO (00:41)
[2024-04-21 00:55] VITALS: BP 124/86; PULSE 115; RESP 18; O2SAT 95
== END 2024-04-21 00:55 | disposition home or self-care (01) ==
PROVIDERS: Emergency Provider Emergency Medicine; PCP Family Medicine
DX: I48.20 Chronic atrial fibrillation, unspecified (principal); R00.0 Tachycardia, unspecified; I49.3 Ventricular premature depolarization; Z79.01 Long term (current) use of anticoagulants; I10 Essential (primary) hypertension
CPT/HCPCS: 71045; 80053; 83735; 84443; 84484; 85025; 93005; 96374; 99285; J3490

== ENCOUNTER → 2024-04-28 10:51 | Outpatient (BNVA) | payer MEDICARE, OTHER, SELFPAY | PROVIDERS: PCP Family Medicine; Visit Provider Internal Medicine Cardiovascular Disease | DX: I48.91 Unspecified atrial fibrillation (principal); I10 Essential (primary) hypertension; G47.33 Obstructive sleep apnea (adult) (pediatric); Z79.01 Long term (current) use of anticoagulants | CPT/HCPCS: 99214 ==

== ENCOUNTER → 2024-11-01 11:36 | Outpatient (BNVA) | payer MEDICARE, OTHER, SELFPAY | PROVIDERS: PCP Family Medicine; Visit Provider Internal Medicine Cardiovascular Disease | DX: I48.91 Unspecified atrial fibrillation (principal); I10 Essential (primary) hypertension; G47.33 Obstructive sleep apnea (adult) (pediatric); Z99.89 Dependence on other enabling machines and devices; Z79.01 Long term (current) use of anticoagulants | CPT/HCPCS: 99214 ==

== ENCOUNTER 2024-12-01 07:45 | Outpatient (CLI) | payer MEDICARE, OTHER, SELFPAY ==
[2024-12-01 08:29] LABS: Basophils # 0.1 10^3/uL (0.0-0.1); Basophils % 1.3 %; Eosinophils # 0.7 10^3/uL (0.0-0.8); Eosinophils % 12.1 %; Hematocrit 41.8 % (36-47); Lymphocytes # 2.1 10^3/uL (0.8-4.8); Lymphocytes % 35.3 %; Mean Corpuscular HGB Conc 32.3 g/dL (30-55); Mean Corpuscular Hemoglobin 29.1 pg (27-33); Mean Corpuscular Volume 90.1 fl (85-98); Mean Platelet Volume 10.8 fL (7.4-10.4); Monocytes # 0.3 10^3/uL (0.2-0.9); Monocytes % 5.4 %; Neutrophils # 2.71 10^3/uL (1.8-7.7); Neutrophils % 45.6 %; Nucleated Red Blood Cells % 0 %; Platelet Count 254 10^3/cmm (157-399); Red Blood Count 4.64 10^6/uL (3.85-5.65); Red Cell Distribution Width 13.3 % (12.1-15.1); White Blood Count 5.95 10^3/uL (3.29-11.43)
[2024-12-01 08:52] LABS: Estmated Average Glucose 105; Hemoglobin A1C 5.3 % (4.0-6.0)
[2024-12-01 09:04] LABS: Hepatitis A Antibody IgM Non-Reactive (Nonreactive); Hepatitis B Core IgM Non-Reactive (Nonreactive); Hepatitis B Surface Antigen Non-Reactive (Nonreactive); Hepatitis C Virus Antibody Non-Reactive (Nonreactive)
[2024-12-01 09:11] LABS: 25 Hydroxy Vitamin D 61 ng/mL (30-100); Alanine Aminotransferase 54 U/L (0-33); Albumin Level 4.2 g/dL (3.5-5.2); Alkaline Phosphatase 123 U/L (35-105); Anion Gap 10.8 (5-19); Aspartate Amino Transferase 52 U/L (0-32); Blood Urea Nitrogen 17 mg/dL (8-23); Calcium 9.4 mg/dL (8.5-10.5); Carbon Dioxide 32 mmol/L (22-29); Chloride 102 mmol/L (98-107); Chol HDL Ratio 2.03 mg/dL (0.0-4.40); Cholesterol 130 mg/dL (0-200); Globulin 2.8 g/dL (1.3-4.6); Glucose 105 mg/dL (65-115); HDL Cholesterol 64 mg/dL (60-100); LDL Cholesterol Calculated 53 mg/dL (50-129); LDL HDL Ratio 0.83 RATIO (0.00-3.22); Osmolality Calculated 294 mOsm/kg (285-295); Potassium 3.8 mmol/L (3.5-5.1); Sodium 141 mmol/L (136-145); Thyroid Stimulating Hormone 1.55 uIU/mL (0.27-4.20); Total Bilirubin 0.4 mg/dL (0.15-1.2); Triglycerides 63 mg/dL (0-150)
== END 2024-12-01 07:46 | disposition home or self-care (01) ==
LOC: LAB 07:47
PROVIDERS: PCP Family Medicine; Visit Provider Family Medicine
DX: R74.01 Elevation of levels of liver transaminase levels (principal); I10 Essential (primary) hypertension; E78.5 Hyperlipidemia, unspecified; E56.1 Deficiency of vitamin K; E55.9 Vitamin D deficiency, unspecified; R00.2 Palpitations; R73.03 Prediabetes
CPT/HCPCS: 36415; 80053; 80061; 80074; 82306; 83036; 84443; 84597; 85025

== ENCOUNTER 2025-03-30 09:42 | Outpatient (CLI) | payer MEDICARE, OTHER, SELFPAY ==
--- NOTE | 2025-03-30 09:44 | MM_ITS ---
WS: [id number] BILATERAL SCREENING DIGITAL TOMOSYNTHESIS MAMMOGRAM WITH CAD HISTORY: SCREENING COMPARISON: 03/29/2024, 03/26/2023, 03/14/2022 Bilateral CC and MLO views with tomosynthesis and synthetic mammography submitted. Computer aided detection analyzed. Breast composition: There are scattered areas of fibroglandular density. No suspicious masses, microcalcifications or architectural distortion. Bilateral breast arterial calcifications and benign calcifications. Stable mass upper outer quadrant RIGHT breast. MM/MM scr BI tomosynthesis [id number] IMPRESSION: BI-RADS: 2 - Benign. FOLLOW UP: 1 Year Follow-up
== END 2025-03-30 09:43 | disposition home or self-care (01) ==
PROVIDERS: PCP Family Medicine; Visit Provider Family Medicine
DX: Z12.31 Encounter for screening mammogram for malignant neoplasm of breast (principal); R92.323 Mammographic fibroglandular density, bilateral breasts; R92.1 Mammographic calcification found on diagnostic imaging of breast; N63.11 Unspecified lump in the right breast, upper outer quadrant
CPT/HCPCS: 77063; 77067

== ENCOUNTER → 2025-05-03 08:59 | Outpatient (BNVA) | payer MEDICARE, OTHER, SELFPAY | PROVIDERS: PCP Family Medicine; Visit Provider Nurse Practitioner Family | DX: I48.0 Paroxysmal atrial fibrillation (principal); I10 Essential (primary) hypertension; G47.33 Obstructive sleep apnea (adult) (pediatric); E78.5 Hyperlipidemia, unspecified; Z79.01 Long term (current) use of anticoagulants; R00.1 Bradycardia, unspecified | CPT/HCPCS: 99214 ==

== ENCOUNTER → 2025-05-18 14:34 | Outpatient (BNVA) | payer MEDICARE, OTHER, SELFPAY | PROVIDERS: PCP Family Medicine; Visit Provider Nurse Practitioner | DX: R35.0 Frequency of micturition (principal) | CPT/HCPCS: 81000 ==

== ENCOUNTER → 2025-05-27 07:34 | Outpatient (BNVA) | payer MEDICARE, OTHER, SELFPAY | PROVIDERS: PCP Family Medicine; Visit Provider Family Medicine Adult Medicine | DX: R39.9 Unspecified symptoms and signs involving the genitourinary system (principal) | CPT/HCPCS: 81000 ==

== ENCOUNTER → 2025-06-03 11:09 | Outpatient (BNVA) | payer MEDICARE, OTHER, SELFPAY | PROVIDERS: PCP Family Medicine; Visit Provider Emergency Medicine | DX: R39.9 Unspecified symptoms and signs involving the genitourinary system (principal) | CPT/HCPCS: 81000 ==

== ENCOUNTER → 2025-06-05 14:28 | Outpatient (BNVA) | payer MEDICARE, OTHER, SELFPAY | PROVIDERS: PCP Family Medicine; Visit Provider Nurse Practitioner | DX: R39.9 Unspecified symptoms and signs involving the genitourinary system (principal) | CPT/HCPCS: 81000; 87086 ==

== ENCOUNTER → 2025-10-05 09:29 | Outpatient (BNVA) | payer MEDICARE, OTHER, SELFPAY | PROVIDERS: PCP Family Medicine; Visit Provider Internal Medicine | DX: I48.20 Chronic atrial fibrillation, unspecified (principal); Z79.01 Long term (current) use of anticoagulants; I10 Essential (primary) hypertension; G47.33 Obstructive sleep apnea (adult) (pediatric) | CPT/HCPCS: 99214 ==